=== PATIENT | male | born 1965 | race Caucasian/White ===

== ENCOUNTER 2018-03-23 21:07 | Emergency (ER) | payer BC, OTHER ==
--- NOTE | 2018-03-23 22:25 | EDPHYS ---
Physician Documentation [facility] Name: Karthikeyan Mccormick Age: 52 yrs Sex: Male : 1965 Arrival Date: 03/23/2018 Time: 21:08 Bed 30 Private MD: Dex Bradley B ED Physician Kailash Redmond HPI: 03/23 22:22 This 52 yrs old Male presents to ER via Ambulatory with complaints of Leg gs Pain. 22:22 The patient presents with pain, that is acute. The complaints affect the medial aspect gs of left thigh. Context: The problem was sustained at home, the patient can fully bear weight, the patient is able to ambulate. Onset: The symptoms/episode began/occurred gradually, pain intermittent. Modifying factors: The symptoms are alleviated by nothing. the symptoms are aggravated by nothing. Associated signs and symptoms: Pertinent negatives calf tenderness, numbness, swelling, warmth, weakness. Severity of symptoms: At their worst the symptoms were moderate, in the emergency department the symptoms have resolved. The patient has not experienced similar symptoms in the past. Historical: - Allergies: 21:24 No Known Allergies; tl2 - Home Meds: 21:24 Symbicort inhalation inhalation [Active]; tl2 - PMHx: 21:24 Asthma; tl2 - Immunization history:: Adult Immunizations up to date. - Social history:: Smoking status: Patient/guardian denies using tobacco. - Ebola Screening: : No symptoms or risks identified at this time. ROS: 22:22 All other systems are negative. gs Exam: 22:22 Head/Face: Normocephalic, atraumatic. Eyes: Pupils equal round and reactive to light, gs extra-ocular motions intact. Lids and lashes normal. Conjunctiva and sclera are non-icteric and not injected. Cornea within normal limits. Periorbital areas with no swelling, redness, or edema. ENT: Nares patent. No nasal discharge, no septal abnormalities noted. Tympanic membranes are normal and external auditory canals are clear. Oropharynx with no redness, swelling, or masses, exudates, or evidence of obstruction, uvula midline. Mucous membranes moist. Neck: Trachea midline, no thyromegaly or masses palpated, and no cervical lymphadenopathy. Supple, full range of motion without nuchal rigidity, or vertebral point tenderness. No Meningismus. Chest/axilla: Normal chest wall appearance and motion. Nontender with no deformity. No lesions are appreciated. Cardiovascular: Regular rate and rhythm with a normal S1 and S2. No gallops, murmurs, or rubs. Normal PMI, no JVD. No pulse deficits. Respiratory: Lungs have equal breath sounds bilaterally, clear to auscultation and percussion. No rales, rhonchi or wheezes noted. No increased work of breathing, no retractions or nasal flaring. Abdomen/GI: Soft, non-tender, with normal bowel sounds. No distension or tympany. No guarding or rebound. No evidence of tenderness throughout. Back: No spinal tenderness. No costovertebral tenderness. Full range of motion. Skin: Warm, dry with normal turgor. Normal color with no rashes, no lesions, and no evidence of cellulitis. MS/ Extremity: Pulses equal, no cyanosis. Neurovascular intact. Full, normal range of motion. Neuro: Awake and alert, GCS 15, oriented to person, place, time, and situation. Cranial nerves II-XII grossly intact. Motor strength 5/5 in all extremities. Sensory grossly intact. Cerebellar exam normal. Normal gait. 22:22 Constitutional: The patient appears alert, awake. 22:22 Musculoskeletal/extremity: DVT Exam: no pain, no swelling, no tenderness, negative Homans' sign noted on exam, no appreciated bluish discoloration, no erythema, no increased warmth. Vital Signs: 21:24 BP 157 / 105; Pulse 77; Resp 18; Temp 98.2(O); Pulse Ox 95% on R/A; Weight 104.33 kg; tl2 Height 6 ft. 2 in. (187.96 cm); Pain 3/10; 21:56 BP 145 / 94; Pulse 78; Resp 18; Pulse Ox 97% on R/A; Pain 0/10; mg2 22:44 BP 138 / 85; Pulse 85; Resp 18; Pulse Ox 100% on R/A; Pain 0/10; mg2 21:24 Body Mass Index 29.53 (104.33 kg, 187.96 cm) tl2 MDM: 21:39 Patient medically screened. gs 22:22 Differential diagnosis: tendonitis, dvt. Data reviewed: vital signs, nurses notes. gs Response to treatment: the patient's symptoms have resolved after treatment, and as a result, I will discharge patient. 03/23 21:40 Order name: D-Dimer 03/23 21:40 Order name: D-Dimer; Complete Time: 22:22 EDMS Administered Medications: No medications were administered Disposition: 03/23/18 22:25 Discharged to Home. Impression: Pain in left lower leg. - Condition is Stable. - Discharge Instructions: Musculoskeletal Pain. - Medication Reconciliation Form, Thank You Letter, Antibiotic Education, Prescription Opioid Use form. - Follow up: Private Physician; When: 2 - 3 days; Reason: Re-evaluation by your physician. Signatures: Dispatcher [employer] EDMS Emma Lema RN RN tl2 Kailash Redmond MD MD gs Trent Rodas RN RN mg2 Corrections: (The following items were deleted from the chart) 22:45 22:25 03/23/2018 22:25 Discharged to Home. Impression: Pain in left lower leg. mg2 Condition is Stable. Forms are Medication Reconciliation Form, Thank You Letter, Antibiotic Education, Prescription Opioid Use. Follow up: Private Physician; When: 2 - 3 days; Reason: Re-evaluation by your physician. gs
--- NOTE | 2018-03-23 22:25 | ER ---
Nurse's Notes [facility] Name: Karthikeyan Mccormick Age: 52 yrs Sex: Male : 1965 Arrival Date: 03/23/2018 Time: 21:08 Bed 30 Private MD: Dex Bradley B Diagnosis: Pain in left lower leg Presentation: 03/23 21:18 Presenting complaint: Patient states: I've been having a pain in my left upper thigh tl2 for a couple days. Pt is able to bear weight and ambulate and states that it does not aggravate the pain. No swelling or discoloration noted. Transition of care: patient was not received from another setting of care. Onset of symptoms was March 21, 2018. Risk Assessment: Do you want to hurt yourself or someone else? Patient reports no desire to harm self or others. Initial Sepsis Screen: Does the patient meet any 2 criteria? No. Patient's initial sepsis screen is negative. Does the patient have a suspected source of infection? No. Patient's initial sepsis screen is negative. Care prior to arrival: None. 21:18 Method Of Arrival: Ambulatory tl2 21:18 Acuity: MELQUIADES 3 tl2 Triage Assessment: 21:24 General: Appears in no apparent distress. uncomfortable, Behavior is calm, cooperative, tl2 appropriate for age. Pain: Complains of pain in medial aspect of left thigh Pain does not radiate. Pain currently is 3 out of 10 on a pain scale. Quality of pain is described as aching. Musculoskeletal: Circulation, motion, and sensation intact. Range of motion: intact in all extremities. Historical: - Allergies: 21:24 No Known Allergies; tl2 - Home Meds: 21:24 Symbicort inhalation inhalation [Active]; tl2 - PMHx: 21:24 Asthma; tl2 - Immunization history:: Adult Immunizations up to date. - Social history:: Smoking status: Patient/guardian denies using tobacco. - Ebola Screening: : No symptoms or risks identified at this time. Screenin:26 Abuse screen: Denies threats or abuse. Nutritional screening: No deficits noted. tl2 Tuberculosis screening: No symptoms or risk factors identified. Fall Risk None identified. Assessment: 21:33 General: Appears in no apparent distress. comfortable, Behavior is calm, cooperative. mg2 Pain: Complains of pain in left leg and medial aspect of left thigh Pain does not radiate. Pain currently is 0 out of 10 on a pain scale. Quality of pain is described as aching, Pain began gradually, 2-3 days ago. Is intermittent, Alleviated by cold application. Neuro: Level of Consciousness is awake, alert, obeys commands, Oriented to person, place, time. Cardiovascular: Capillary refill < 3 seconds Patient's skin is warm and dry. Respiratory: Airway is patent Respiratory effort is even, unlabored, Respiratory pattern is regular, symmetrical. GI: No signs and/or symptoms were reported involving the gastrointestinal system. : No signs and/or symptoms were reported regarding the genitourinary system. EENT: No signs and/or symptoms were reported regarding the EENT system. Derm: Skin is intact, Skin is pink, warm \T\ dry. normal. Musculoskeletal: Circulation, motion, and sensation intact. Reports pain in left leg and medial aspect of left thigh since 3 days. Pain is 0 out of 10 on a pain scale. 22:44 Reassessment: Patient appears in no apparent distress at this time. Patient and/or mg2 family updated on plan of care and expected duration. Pain level reassessed. Patient is alert, oriented x 3, equal unlabored respirations, skin warm/dry/pink. Vital Signs: 21:24 BP 157 / 105; Pulse 77; Resp 18; Temp 98.2(O); Pulse Ox 95% on R/A; Weight 104.33 kg; tl2 Height 6 ft. 2 in. (187.96 cm); Pain 3/10; 21:56 BP 145 / 94; Pulse 78; Resp 18; Pulse Ox 97% on R/A; Pain 0/10; mg2 22:44 BP 138 / 85; Pulse 85; Resp 18; Pulse Ox 100% on R/A; Pain 0/10; mg2 21:24 Body Mass Index 29.53 (104.33 kg, 187.96 cm) tl2 ED Course: 21:08 Patient arrived in ED. ds1 21:08 Dex Bradley MD is Private Physician. ds1 21:10 Kailash Redmond MD is Attending Physician. gs 21:19 Trent Rodas, TRACY is Primary Nurse. mg2 21:19 Triage completed. tl2 21:24 Arm band placed on right wrist. tl2 21:26 Patient has correct armband on for positive identification. Bed in low position. Call tl2 light in reach. Side rails up X 1. Adult w/ patient. 21:49 No provider procedures requiring assistance completed. Inserted saline lock: 20 gauge mg2 in right antecubital area, using aseptic technique. Blood collected. 22:44 IV discontinued, intact, bleeding controlled, No redness/swelling at site. Pressure mg2 dressing applied. Administered Medications: No medications were administered Outcome: 22:25 Discharge ordered by . 22:44 Discharged to home ambulatory, with family. mg2 22:44 Condition: good 22:44 Discharge instructions given to patient, family, Instructed on discharge instructions, follow up and referral plans. Demonstrated understanding of instructions, follow-up care. 22:45 Patient left the ED. mg2 Signatures: Gogo Green ds1 Emma Lema RN RN tl2 Kailash Redmond MD MD Trent Rodas RN RN mg2
[2018-03-23 23:51] VITALS: BP 138/85; TEMP 98.2; O2SAT 100
[2018-03-24] MEDS ORDERED: IBUPROFEN 100 MG/5 ML UCUP ONE (00:52)
== END 2018-03-23 22:45 | disposition home or self-care (01) ==
LOC: ER 21:07
DX: M79.662 Pain in left lower leg (principal); J45.909 Unspecified asthma, uncomplicated
CPT/HCPCS: 36415; 85379; 99283

== ENCOUNTER 2018-09-15 15:52 | Emergency (ER) | payer BC ==
[2018-09-15] MEDS ORDERED: LIDOCAINE 1% MPF 5 ML VIAL ONE ×2 (16:46→17:15)
[2018-09-15] MEDS ORDERED: SMZ./TMP. 800/160 MG TABLET ONE (17:00)
[2018-09-15] MEDS ORDERED: DOXYCYCLINE 100 MG CAP PO ONE (17:00)
--- NOTE | 2018-09-15 17:25 | ER ---
Nurse's Notes [facility] Name: Karthikeyan Mccormick Age: 53 yrs Sex: Male : 1965 Arrival Date: 09/15/2018 Time: 15:57 Bed 6 Private MD: Dex Bradley B Diagnosis: Cutaneous abscess of right axilla Presentation: 09/15 16:01 Presenting complaint: Patient states: right under arm abscess started on Tuesday, was sv seen at [place] on Tuesday, sent home with abx. They told him to call a surgeon and he spoke with Dr Munguia and he is to meet him here this evening. Transition of care: patient was not received from another setting of care. Onset of symptoms was September 11, 2018. Care prior to arrival: None. 16:01 Method Of Arrival: Ambulatory sv 16:01 Acuity: MELQUIADES 3 sv 17:56 Risk Assessment: Do you want to hurt yourself or someone else? Patient reports no aj desire to harm self or others. Initial Sepsis Screen: Does the patient meet any 2 criteria? No. Patient's initial sepsis screen is negative. Does the patient have a suspected source of infection? No. Patient's initial sepsis screen is negative. Triage Assessment: 16:04 General: Appears in no apparent distress. uncomfortable, Behavior is calm, cooperative, sv appropriate for age. Pain: Complains of pain in right axilla Pain currently is 4 out of 10 on a pain scale. Neuro: Level of Consciousness is awake, alert, obeys commands, Oriented to person, place, time, situation, Gait is steady. Respiratory: Respiratory effort is even, unlabored, Respiratory pattern is regular, symmetrical. Derm: Abscess located on right axilla is dime sized, is red, is raised. Historical: - Allergies: 16:02 No Known Allergies; sv - PMHx: 16:02 Asthma; sv - PSHx: 16:02 right shoulder; right knee; left ankle; left thumb; sv - Immunization history:: Adult Immunizations up to date. - Family history:: not pertinent. - Social history:: Smoking status: Patient/guardian denies using tobacco. - Ebola Screening: : Patient negative for fever greater than or equal to 101.5 degrees Fahrenheit, and additional compatible Ebola Virus Disease symptoms Patient denies exposure to infectious person Patient denies travel to an Ebola-affected area in the 21 days before illness onset No symptoms or risks identified at this time. Screenin:46 Abuse screen: Denies threats or abuse. Denies injuries from another. Nutritional aj screening: No deficits noted. Tuberculosis screening: No symptoms or risk factors identified. Fall Risk None identified. Assessment: 17:46 General: Appears in no apparent distress. comfortable, Behavior is calm, cooperative, aj appropriate for age. Pain: Complains of pain in right axilla. Neuro: Level of Consciousness is awake, alert, obeys commands, Oriented to person, place, time, situation. Respiratory: Airway is patent Respiratory effort is even, unlabored, Respiratory pattern is regular, symmetrical. Derm: Skin is intact, is healthy with good turgor, Skin is pink, warm \T\ dry. normal, Abscess located on right axilla is half dollar sized, has purulent drainage, is hot to touch, is red, is raised. Vital Signs: 16:02 BP 120 / 89; Pulse 88; Resp 20; Temp 98.5; Pulse Ox 97% ; Weight 111.13 kg; Height 6 sv ft. 2 in. (187.96 cm); Pain 4/10; 16:02 Body Mass Index 31.46 (111.13 kg, 187.96 cm) sv ED Course: 15:57 Patient arrived in ED. mr 15:58 Dex Bradley MD is Private Physician. mr 16:02 Triage completed. sv 16:04 Arm band placed on. sv 16:20 Troy Barragan MD is Attending Physician. amy 16:30 Lita Leon RN is Primary Nurse. aj 17:24 Simeon Munguia MD is Referral Physician. amy 17:46 Patient has correct armband on for positive identification. Pulse ox on. NIBP on. aj 17:46 Assist provider with I \T\ D: of an abscess on Set up I\T\D tray. Performed by Troy Barragan MD Wound packed. Dressing with Neosporin and 4X4s, Patient tolerated well. Patient did not have IV access during this emergency room visit. Administered Medications: 17:45 Drug: Doxycycline 200 mg Route: PO; aj 17:56 Follow up: Response: No adverse reaction aj 17:45 Drug: Bactrim (160 mg-800 mg (DS) 1 tablet Route: PO; aj 17:57 Follow up: Response: No adverse reaction joanie 17:45 Drug: Lidocaine (1 %) 10 ml Volume: 20 ml; Route: Infiltration; joanie 17:45 Drug: Neosporin Ointment 1 application Route: Topical; Site: affected area; aj Outcome: 17:24 Discharge ordered by . amy 17:46 Discharged to home ambulatory, with family. joanie 17:46 Condition: good 17:46 Discharge instructions given to patient, family, Instructed on discharge instructions, follow up and referral plans. medication usage, wound care, Demonstrated understanding of instructions, follow-up care, medications, wound care, Prescriptions given X 3. 17:57 Patient left the ED. joanie Signatures: Dona Deras RN RN sv Myers, Amanda, RN RN aj Anderson, Corey, MD MD cha Rivera, Mary Corrections: (The following items were deleted from the chart) 16:04 16:02 Pulse 88bpm; Resp 20bpm; Pulse Ox 97%; Temp 98.5F; 111.13 kg; Height 6 ft. 2 in.; sv BMI: 31.4; Pain 4/10; sv
--- NOTE | 2018-09-15 17:25 | EDPHYS ---
Physician Documentation [facility] Name: Karthikeyan Mccormick Age: 53 yrs Sex: Male : 1965 Arrival Date: 09/15/2018 Time: 15:57 Bed 6 Private MD: Dex Bradley B ED Physician Troy Barragan HPI: 09/15 16:36 This 53 yrs old Male presents to ER via Ambulatory with complaints of Abscess.amy 16:36 The patient presents with an abscess of the right axilla. Description: The affected amy area is moderate sized, localized, draining, erythematous. Associated signs and symptoms: Pertinent positives: drainage, erythema, swelling. Severity of symptoms: At their worst the symptoms were moderate, in the emergency department the symptoms are unchanged. Historical: - Allergies: 16:02 No Known Allergies; sv - PMHx: 16:02 Asthma; sv - PSHx: 16:02 right shoulder; right knee; left ankle; left thumb; sv - Immunization history:: Adult Immunizations up to date. - Family history:: not pertinent. - Social history:: Smoking status: Patient/guardian denies using tobacco. - Ebola Screening: : Patient negative for fever greater than or equal to 101.5 degrees Fahrenheit, and additional compatible Ebola Virus Disease symptoms Patient denies exposure to infectious person Patient denies travel to an Ebola-affected area in the 21 days before illness onset No symptoms or risks identified at this time. ROS: 16:36 Constitutional: Negative for fever, chills, and weight loss, Eyes: Negative for injury, amy pain, redness, and discharge, ENT: Negative for injury, pain, and discharge, Neck: Negative for injury, pain, and swelling, Cardiovascular: Negative for chest pain, palpitations, and edema, Respiratory: Negative for shortness of breath, cough, wheezing, and pleuritic chest pain, Abdomen/GI: Negative for abdominal pain, nausea, vomiting, diarrhea, and constipation, Back: Negative for injury and pain, : Negative for injury, bleeding, discharge, and swelling, Skin: Negative for injury, rash, and discoloration, Neuro: Negative for headache, weakness, numbness, tingling, and seizure, Psych: Negative for depression, anxiety, suicide ideation, homicidal ideation, and hallucinations, Allergy/Immunology: Negative for hives, rash, and allergies, Endocrine: Negative for neck swelling, polydipsia, polyuria, polyphagia, and marked weight changes, Hematologic/Lymphatic: Negative for swollen nodes, abnormal bleeding, and unusual bruising. 16:36 MS/extremity: Positive for pain, swelling, tenderness, of the right axilla. Exam: 16:36 Constitutional: This is a well developed, well nourished patient who is awake, alert, amy and in no acute distress. Head/Face: Normocephalic, atraumatic. Eyes: Pupils equal round and reactive to light, extra-ocular motions intact. Lids and lashes normal. Conjunctiva and sclera are non-icteric and not injected. Cornea within normal limits. Periorbital areas with no swelling, redness, or edema. ENT: Nares patent. No nasal discharge, no septal abnormalities noted. Tympanic membranes are normal and external auditory canals are clear. Oropharynx with no redness, swelling, or masses, exudates, or evidence of obstruction, uvula midline. Mucous membranes moist. Neck: Trachea midline, no thyromegaly or masses palpated, and no cervical lymphadenopathy. Supple, full range of motion without nuchal rigidity, or vertebral point tenderness. No Meningismus. Chest/axilla: Normal chest wall appearance and motion. Nontender with no deformity. No lesions are appreciated. Cardiovascular: Regular rate and rhythm with a normal S1 and S2. No gallops, murmurs, or rubs. Normal PMI, no JVD. No pulse deficits. Respiratory: Lungs have equal breath sounds bilaterally, clear to auscultation and percussion. No rales, rhonchi or wheezes noted. No increased work of breathing, no retractions or nasal flaring. Abdomen/GI: Soft, non-tender, with normal bowel sounds. No distension or tympany. No guarding or rebound. No evidence of tenderness throughout. Back: No spinal tenderness. No costovertebral tenderness. Full range of motion. Male : Normal genitalia with no discharge or lesions. Skin: Warm, dry with normal turgor. Normal color with no rashes, no lesions, and no evidence of cellulitis. Neuro: Awake and alert, GCS 15, oriented to person, place, time, and situation. Cranial nerves II-XII grossly intact. Motor strength 5/5 in all extremities. Sensory grossly intact. Cerebellar exam normal. Normal gait. Psych: Awake, alert, with orientation to person, place and time. Behavior, mood, and affect are within normal limits. 16:36 Musculoskeletal/extremity: ROM: no acute changes, Circulation is intact in all extremities. Sensation intact. Compartment Syndrome exam of affected extremity: is normal. DVT Exam: negative Homans' sign noted on exam, no appreciated bluish discoloration, pain, swelling, tenderness, erythema, increased warmth, that is moderate. Vital Signs: 16:02 BP 120 / 89; Pulse 88; Resp 20; Temp 98.5; Pulse Ox 97% ; Weight 111.13 kg; Height 6 sv ft. 2 in. (187.96 cm); Pain 4/10; 16:02 Body Mass Index 31.46 (111.13 kg, 187.96 cm) sv MDM: 16:20 Patient medically screened. [facility] 16:36 Data reviewed: vital signs, nurses notes. [facility] 09/15 16:36 Order name: Suture Tray at Bedside; Complete Time: 17:07 [facility] 09/15 17:22 Order name: Wound dressing; Complete Time: 17:45 [facility] Administered Medications: 17:45 Drug: Doxycycline 200 mg Route: PO; aj 17:56 Follow up: Response: No adverse reaction aj 17:45 Drug: Bactrim (160 mg-800 mg (DS) 1 tablet Route: PO; aj 17:57 Follow up: Response: No adverse reaction 17:45 Drug: Lidocaine (1 %) 10 ml Volume: 20 ml; Route: Infiltration; aj 17:45 Drug: Neosporin Ointment 1 application Route: Topical; Site: affected area; Disposition: 09/15/18 17:24 Discharged to Home. Impression: Cutaneous abscess of right axilla. - Condition is Fair. - Discharge Instructions: Skin Abscess, Incision and Drainage, Skin Abscess, [id number], Incision and Drainage, Care After. - Prescriptions for Tylenol- Codeine #3 300-30 mg Oral Tablet - take 2 tablet by ORAL route every 6 hours As needed; 30 tablet. Doxycycline Hyclate 100 mg Oral Tablet - take 1 tablet by ORAL route every 12 hours; 20 tablet. Bactrim DS 800- 160 mg Oral Tablet - take 1 tablet by ORAL route every 12 hours for 10 days; 20 tablet. - Medication Reconciliation Form, Thank You Letter, Antibiotic Education, Prescription Opioid Use form. - Follow up: Simeon Munguia; When: 2 - 3 days; Reason: Recheck today's complaints, Continuance of care, Re-evaluation by your physician. - Problem is new. - Symptoms have improved. Signatures: Dispatcher [employer] Dona Bryan, RN Lita Bhatia RN Troy Norman MD MD cha Leal, Jahala, RN RN [email or web address] Corrections: (The following items were deleted from the chart) 17:57 17:24 09/15/2018 17:24 Discharged to Home. Impression: Cutaneous abscess of right aj axilla. Condition is Fair. Discharge Instructions: Skin Abscess, Incision and Drainage, Skin Abscess, [id number], Incision and Drainage, Care After. Prescriptions for Tylenol-Codeine #3 300-30 mg Oral Tablet - take 2 tablet by ORAL route every 6 hours As needed; 30 tablet, Doxycycline Hyclate 100 mg Oral Tablet - take 1 tablet by ORAL route every 12 hours; 20 tablet, Bactrim DS 800-160 mg Oral Tablet - take 1 tablet by ORAL route every 12 hours for 10 days; 20 tablet. and Forms are Medication Reconciliation Form, Thank You Letter, Antibiotic Education, Prescription Opioid Use. Follow up: Simeon Munguia; When: 2 - 3 days; Reason: Recheck today's complaints, Continuance of care, Re-evaluation by your physician. Problem is new. Symptoms have improved. amy
[2018-09-15 20:15] VITALS: BP 101/68; TEMP 98.3; O2SAT 100
== END 2018-09-15 17:57 | disposition home or self-care (01) ==
LOC: ER 15:52
DX: L02.411 Cutaneous abscess of right axilla (principal)
CPT/HCPCS: 99284

== ENCOUNTER 2018-11-03 16:28 | Observation (INO) | payer BC ==
--- OUTSIDE RECORDS SUMMARY | 2018-11-03 16:30 | XMS REPORT ---
:1965 [facility] Address [address] [place] [address] Dr. Cortes [address] [place] [id number] Care Team Providers Name Role Phone Unavailable Unavailable Unavailable Problems This patient has no known problems. Allergies, Adverse Reactions, Alerts This patient has no known allergies or adverse reactions. Medications This patient has no known medications.
[2018-11-03] MEDS ORDERED: METHYLPREDNISOLONE 125 MG INJ ONE (16:43)
[2018-11-03] MEDS ORDERED: DIPHENHYDRAMINE 50 MG/ML VIAL ONE (16:43)
[2018-11-03] MEDS ORDERED: FAMOTIDINE 20 MG/2 ML VIAL IV ONE (16:44)
[2018-11-03] MEDS ORDERED: EPINEPHRINE/PF 1 MG/ML AMP ONE (16:50)
[2018-11-03] MEDS ORDERED: NA CHLORIDE 0.9% 1,000 ML ONE (16:51)
[2018-11-03 17:18] LABS: Absolute Lymphocytes (CBC) 3.6 K/uL (0.7-4.9); Absolute Monocytes 0.7 K/uL (0.1-1.3); Absolute Neutrophil 12.6 K/uL (1.8-8.0); Basophils % 0.2 % (0-1.3); Eosinophils % 0.9 % (0-4.4); Hematocrit 47.1 % (39.6-49.0); Lymphocytes % 21.1 % (15.3-44.8); MPV 9.4 fL (7.6-11.3); Monocytes % 4.2 % (3.3-12.3); RBC Red Blood Cell Count 5.37 M/uL (4.33-5.43)
[2018-11-03 17:32] LABS: Potassium 3.5 mmol/L (3.5-5.1)
--- NOTE | 2018-11-03 18:39 | RAD REPORT ---
EXAM DESCRIPTION: RAD - Chest Single View - 11/03/2018 5:10 pm CLINICAL HISTORY: Dyspnea COMPARISON: April 2017 TECHNIQUE: AP portable chest image was obtained 1707 hours . FINDINGS: No focal lung parenchymal process. Interstitial pattern is mildly prominent but not clearl y different. Heart and vasculature are normal. No measurable pleural effusion and no pneumothorax. No acute bony abnormality seen. No acute aortic findings suspected. IMPRESSION: No acute cardiopulmonary process. No significant change from comparison.
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
[2018-11-03] MEDS: METHYLPREDNISOLONE 125 MG INJ IV SCH (23:35)
[2018-11-03] MEDS: DIPHENHYDRAMINE 25 MG TAB/CAP PO SCH (23:35)
[2018-11-04 01:34] VITALS: BMI 29.0
[2018-11-04] MEDS: DIPHENHYDRAMINE 25 MG TAB/CAP PO SCH ×2 (04:00→09:54)
[2018-11-04] MEDS: METHYLPREDNISOLONE 125 MG INJ IV SCH (05:48)
[2018-11-04 09:16] VITALS: BP 136/87; TEMP 97.5
[2018-11-04] MEDS ORDERED: HOME MED 1 EA UNK (Budesonide/Formoterol Fumarate [Symbicort 160-4.5 Mcg Inhaler] 2 PUFF) IH PRN (09:24)
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
[2018-11-04 11:07] VITALS: O2SAT 96
--- NOTE | 2018-11-07 11:27 | EKG ---
Test Date: 2018-11-03 Test Time: 17:01:00 Clinic Administrator: FRANCIS MEASUREMENT RESULTS: Intervals: Rate: 114 ME: 148 QRSD: 94 QT: 348 QTc: 479 [place]: P: 67 ME: 148 QRS: 78 T: 42 INTERPRETIVE STATEMENTS: Sinus tachycardia Nonspecific ST and T wave abnormality Abnormal ECG Compared to ECG 12/10/2010 20:50:20 ST (T wave) deviation now present Electronically Signed On 11-03-18 18:21:05 CDT by Torito Youngblood
== END 2018-11-04 10:37 | disposition home or self-care (01) ==
LOC: ER 16:28 → ERHOLD 21:08 → 2ND 22:15
PROVIDERS: ADMIT Internal Medicine; ATTEND Internal Medicine
DX: T88.6XXA Anaphylactic reaction due to adverse effect of correct drug or medicament properly administered, initial encounter (principal); T50.8X5A Adverse effect of diagnostic agents, initial encounter; R00.0 Tachycardia, unspecified; J45.909 Unspecified asthma, uncomplicated; V89.2XXS Person injured in unspecified motor-vehicle accident, traffic, sequela
CPT/HCPCS: 36415; 71045; 80048; 85025; 93005; 94760; 96361; 96372; 96374; 96375; 99291; 99292; G0378; J0171; J2930; J7030

== ENCOUNTER 2020-05-12 18:39 | Emergency (ER) | payer BC ==
--- NOTE | 2020-05-12 19:10 | ER ---
Nurse's Notes [facility] Name: Karthikeyan Mccormick Age: 54 yrs Sex: Male : 1965 Arrival Date: 05/12/2020 Time: 18:40 Bed 3 Private MD: Diagnosis: ST elevation (STEMI) myocardial infarction involving right coronary artery Presentation: 05/12 18:40 Chief complaint: Patient states: Chest pain on and off x 1 week ago but today the pain aa5 is not going away. Pt reports constant pain x 2 hrs. EMS reports giving Nitro x 1, Zofran 4mg, and ASA 324mg. IV started to left AC by EMS. 18:40 Risk Assessment: Do you want to hurt yourself or someone else? Patient reports no aa5 desire to harm self or others. Onset of symptoms was May 12, 2020. 18:40 Acuity: MELQUIADES 1 aa5 18:40 Method Of Arrival: EMS: [facility] aa5 19:01 Coronavirus screen: At this time, the client does not indicate any symptoms associated tw2 with coronavirus-19. Ebola Screen: Patient denies travel to an Ebola-affected area in the 21 days before illness onset. Initial Sepsis Screen: Does the patient meet any 2 criteria? No. Patient's initial sepsis screen is negative. Does the patient have a suspected source of infection? No. Patient's initial sepsis screen is negative. Triage Assessment: 18:59 General: Appears in no apparent distress. uncomfortable, Behavior is calm, cooperative, jl7 appropriate for age. Pain: Complains of pain in chest. Neuro: Level of Consciousness is awake, alert, obeys commands, Oriented to person, place, time, situation. Cardiovascular: Heart tones present Patient's skin is warm and dry. Respiratory: Airway is patent Respiratory effort is even, unlabored, Respiratory pattern is regular, symmetrical. Derm: Skin is pink, warm \T\ dry. Historical: - Allergies: 18:59 No Known Allergies; jl7 - Home Meds: 18:59 naltrexone 50 mg oral tab [Active]; jl7 - PMHx: 18:59 Asthma; alcholism; jl7 - PSHx: 18:59 right shoulder; right knee; left ankle; left thumb; jl7 - Immunization history:: Adult Immunizations unknown. - Social history:: Smoking status: Patient denies any tobacco usage or history of. Screenin:01 Abuse screen: Denies threats or abuse. Nutritional screening: No deficits noted. tw2 Tuberculosis screening: No symptoms or risk factors identified. Fall Risk None identified. Assessment: 18:50 Reassessment: Pt states he cannot take Narcotics due to taking Naltrexone, Wasted aa5 100mcg of Fentanyl by me and Katelynn Harper RN. . 19:15 Reassessment: Jessica () [phone]. ea 19:30 Reassessment: Report called to Tiff MOLINA at [facility] center medical and lab director. ea 19:42 Reassessment: Patient and/or family updated on plan of care and expected duration. Pain ll2 level reassessed. Patient is alert, oriented x 3, equal unlabored respirations, skin warm/dry/pink. 19:45 Pain: Pain began 2-3 days ago. ll2 20:21 Pain: ll2 20:25 Reassessment: Patient and/or family updated on plan of care and expected duration. Pain ll2 level reassessed. Patient is alert, oriented x 3, equal unlabored respirations, skin warm/dry/pink. pt left via stretcher with life flight from [facility], Pt tolerated well. Wifes number given to flight nurse. Vital Signs: 18:43 Weight 99.79 kg (R); tw2 19:02 BP 120 / 104; Pulse 71; Resp 19; Pulse Ox 100% ; Weight 99.79 kg; jl7 19:46 BP 94 / 60; Pulse 53; Resp 18; Pulse Ox 100% on R/A; ea ED Course: 18:36 Inserted saline lock: 20 gauge in left forearm, using aseptic technique. ,using aseptic tw2 technique. [place] Blood collected. Missed attempt(s): 20 gauge in left antecubital area. Bleeding controlled, band aid applied, catheter tip intact. Missed attempt(s): 20 gauge in left antecubital area. by TR[place]Y [place]. Bleeding controlled, band aid applied, catheter tip intact. 18:40 Patient arrived in ED. as 18:40 Arm band placed on. aa5 18:40 Placed in gown. Bed in low position. case monitor on. Pulse ox on. NIBP on. tw2 18:41 Bill Rendon PA is PHCP. jr8 18:41 Troy Barragan MD is Attending Physician. jr8 18:44 Triage completed. aa5 18:47 EKG done, by ED staff, reviewed by Troy Barragan MD. em1 19:01 Maintain EMS IV. Dressing intact. Good blood return noted. Site clean \T\ dry. Gauge \T\ tw 2 site: 20 g RIGHT ac. Patient maintains SpO2 saturation greater than 95% on room air. 19:13 Sabi Gonzalez, TRACY is Primary Nurse. ll2 19:26 XRAY Chest (1 view) In Process Unspecified. EDMS 19:47 No provider procedures requiring assistance completed. Patient transferred, IV remains ea in place. Administered Medications: 18:38 Drug: Zofran (Ondansetron) 4 mg Route: IVP; Site: right antecubital; tw2 19:03 Follow up: Response: No adverse reaction jl7 18:44 Not Given (Patient ): Tenecteplase 45 mg IV at calculated rate once jr8 18:46 Drug: Heparin (NE-Bolus with thrombolytic) - HEParin 60 units/kg {Co-Signature: eric tw2 (Shanique Mason RN).} Route: IVP; Site: right antecubital; 19:04 Follow up: Response: No adverse reaction jl7 18:50 Drug: Heparin (NE Drip) 12 units/kg/hr - (HEParin 98831 units, D5W 500 ml) tw2 {Co-Signature: jlSelma (Shanique Mason RN).} Route: IV; Rate: calculated rate; Site: left forearm; 18:51 Drug: Tenecteplase 50 mg {Co-Signature: eric (Shanique Mason RN).} Route: IV; Rate: tw2 calculated rate; Site: right antecubital; 19:45 Follow up: Response: No adverse reaction; IV Status: Completed infusion ea 18:52 Not Given (Patient Refused; pt takes naltrexone): fentaNYL (PF) 25 mcg IVP once; RASS tw2 on ADMIN: Combtv4, Very Agttd3, Agttd2, Rstlss1, AlertClm0, Drwsy-1, Lt Sdtn-2, Mod Sdtn-3, Dp Sdtn-4, UnArsble-5 18:52 Drug: PlaVIX 300 mg Route: PO; tw2 19:04 Follow up: Response: No adverse reaction jl7 19:05 Drug: NS 0.9% 1000 ml Route: IV; Rate: 1 bolus; Site: left forearm; tw2 19:22 Drug: fentaNYL (PF) 25 mcg Route: IVP; Site: right antecubital; ll2 19:41 Follow up: Response: No adverse reaction; RASS: Alert and Calm (0) ll2 19:40 Drug: NS 0.9% 1000 ml Route: IV; Rate: 1 bolus; Site: left antecubital; ll2 19:41 Drug: fentaNYL (PF) 25 mcg Route: IVP; Site: right antecubital; ll2 19:41 Follow up: Response: No adverse reaction; RASS: Alert and Calm (0) 2 Outcome: 19:09 ER care complete, transfer ordered by . jr8 20:05 Patient left the ED. ll2 20:24 Transferred by helicopter to [facility]. [facility] 20:24 Condition: stable 20:24 Instructed on the need for transfer. Signatures: Dispatcher [employer] EDMS Maddy Spivey Eric em1 Nohemi Head, RN RN aa5 Bill Rendon PA PA jr8 Katelynn Harper RN RN tw2 Shanique Mason RN RN jl7 Keisha Gillette, RN RN Sabi Tyler RN RN ll2 Shanique Mason RN jl7 Corrections: (The following items were deleted from the chart) 19:06 18:40 Chief complaint: Patient states: Chest pain on and off x 1 week ago but today the aa5 pain is not going away. Pt reports constant pain x 2 hrs. aa5
--- NOTE | 2020-05-12 19:10 | EDPHYS ---
Physician Documentation [facility] Name: Karthikeyan Mccormick Age: 54 yrs Sex: Male : 1965 Arrival Date: 05/12/2020 Time: 18:40 Bed 3 Private MD: ED Physician Troy Barragan HPI: 05/12 18:48 This 54 yrs old Male presents to ER via EMS with complaints of STEMI, Chest jr8 Pain. 18:48 The patient or guardian reports chest pain that is located primarily in the substernal jr8 area. Onset: acutely, today, 2 hour(s) ago. The pain radiates to jaw. Associated signs and symptoms: Pertinent positives: nausea. The chest pain is described as a pressure. Duration: The patient or guardian reports a single episode, that is still ongoing. Modifying factors: The symptoms are alleviated by nothing. the symptoms are aggravated by nothing. Severity of pain: At its worst the pain was moderate in the emergency department the pain is unchanged. EMS care prior to arrival includes: aspirin, nitroglycerin, x 1, with no relief of the chest pain. The patient has not experienced similar symptoms in the past. The patient has not recently seen a physician. Historical: - Allergies: 18:59 No Known Allergies; jl7 - Home Meds: 18:59 naltrexone 50 mg oral tab [Active]; jl7 - PMHx: 18:59 Asthma; alcholism; jl7 - PSHx: 18:59 right shoulder; right knee; left ankle; left thumb; jl7 - Immunization history:: Adult Immunizations unknown. - Social history:: Smoking status: Patient denies any tobacco usage or history of. ROS: 18:48 Eyes: Negative for injury, pain, redness, and discharge, ENT: Negative for injury, jr8 pain, and discharge, Neck: Negative for injury, pain, and swelling, Respiratory: Negative for shortness of breath, cough, wheezing, and pleuritic chest pain, Back: Negative for injury and pain, MS/Extremity: Negative for injury and deformity, Skin: Negative for injury, rash, and discoloration, Neuro: Negative for headache, weakness, numbness, tingling, and seizure. 18:48 Cardiovascular: Positive for chest pain, Negative for edema, orthopnea, palpitations, paroxysmal nocturnal dyspnea. 18:48 Abdomen/GI: Positive for nausea, Negative for abdominal pain, vomiting, diarrhea, constipation, abdominal cramps, abdominal distension. Exam: 18:48 Eyes: Pupils equal round and reactive to light, extra-ocular motions intact. Lids and jr8 lashes normal. Conjunctiva and sclera are non-icteric and not injected. Cornea within normal limits. Periorbital areas with no swelling, redness, or edema. ENT: Nares patent. No nasal discharge, no septal abnormalities noted. Tympanic membranes are normal and external auditory canals are clear. Oropharynx with no redness, swelling, or masses, exudates, or evidence of obstruction, uvula midline. Mucous membranes moist. Neck: Trachea midline, no thyromegaly or masses palpated, and no cervical lymphadenopathy. Supple, full range of motion without nuchal rigidity, or vertebral point tenderness. No Meningismus. Cardiovascular: Regular rate and rhythm with a normal S1 and S2. No gallops, murmurs, or rubs. Normal PMI, no JVD. No pulse deficits. Respiratory: Lungs have equal breath sounds bilaterally, clear to auscultation and percussion. No rales, rhonchi or wheezes noted. No increased work of breathing, no retractions or nasal flaring. Abdomen/GI: Soft, non-tender, with normal bowel sounds. No distension or tympany. No guarding or rebound. No evidence of tenderness throughout. Back: No spinal tenderness. No costovertebral tenderness. Full range of motion. Skin: Warm, dry with normal turgor. Normal color with no rashes, no lesions, and no evidence of cellulitis. MS/ Extremity: Pulses equal, no cyanosis. Neurovascular intact. Full, normal range of motion. Neuro: Awake and alert, GCS 15, oriented to person, place, time, and situation. Cranial nerves II-XII grossly intact. Motor strength 5/5 in all extremities. Sensory grossly intact. Cerebellar exam normal. Normal gait. 19:10 ECG was reviewed by the Attending Physician. jr8 Vital Signs: 18:43 Weight 99.79 kg (R); tw2 19:02 BP 120 / 104; Pulse 71; Resp 19; Pulse Ox 100% ; Weight 99.79 kg; jl7 19:46 BP 94 / 60; Pulse 53; Resp 18; Pulse Ox 100% on R/A; ea MDM: 18:41 Patient medically screened. amy 18:48 The patient was not given aspirin in the Emergency Department. Administered by EMS. jr8 Data reviewed: vital signs, nurses notes, lab test result(s), EKG, radiologic studies, plain films. Data interpreted: Pulse oximetry: on room air is 100 %. Interpretation: normal. Counseling: I had a detailed discussion with the patient and/or guardian regarding: the historical points, exam findings, and any diagnostic results supporting the discharge/admit diagnosis, lab results, radiology results, the need to transfer to another facility, [facility] does not immediately have the required specialist. ED course: Dr. Wilcox consulted by laborer construction or leak gang crew unavailable . 05/12 18:42 Order name: Basic Metabolic Panel; Complete Time: 19:34 8 05/12 18:42 Order name: CBC with Diff; Complete Time: 19:24 8 05/12 18:42 Order name: LFT's; Complete Time: 19:34 8 05/12 18:42 Order name: Magnesium; Complete Time: 19:34 8 05/12 18:42 Order name: NT PRO-BNP; Complete Time: 19:34 jr8 05/12 18:42 Order name: PT-INR; Complete Time: 19:24 8 05/12 18:42 Order name: Troponin (emerg Dept Use Only); Complete Time: 19:34 jr8 05/12 18:42 Order name: XRAY Chest (1 view); Complete Time: 19:46 8 05/12 18:42 Order name: EKG; Complete Time: 18:43 8 05/12 18:42 Order name: Cardiac monitoring; Complete Time: 18:56 jr8 05/12 18:42 Order name: EKG - Nurse/Tech; Complete Time: 18:47 8 05/12 18:42 Order name: IV Saline Lock; Complete Time: 18:56 jr8 05/12 18:42 Order name: Labs collected and sent; Complete Time: 18:57 jr8 05/12 18:42 Order name: O2 Per Protocol; Complete Time: 18:56 jr8 05/12 18:42 Order name: O2 Sat Monitoring; Complete Time: 18:56 jr8 EC:10 Rate is 65 beats/min. Rhythm is regular, Normal Sinus Rhythm. QRS [place] is Normal. [place] jr8 interval is normal at 146 msec. QRS interval is normal at 108 msec. QT interval is normal at 440 msec. No Q waves. T waves are Inverted in lead aVL. ST Segment is elevated in leads III, aVF, 1-2mm. ST Segment is depressed in lead aVL. Clinical impression: Inferior IN - acute. Interpreted by me. Administered Medications: 18:38 Drug: Zofran (Ondansetron) 4 mg Route: IVP; Site: right antecubital; tw2 19:03 Follow up: Response: No adverse reaction jl7 18:44 Not Given (Patient ): Tenecteplase 45 mg IV at calculated rate once jr8 18:46 Drug: Heparin (IN-Bolus with thrombolytic) - HEParin 60 units/kg {Co-Signature: eric tw2 (Shanique Mason RN).} Route: IVP; Site: right antecubital; 19:04 Follow up: Response: No adverse reaction jl7 18:50 Drug: Heparin (IN Drip) 12 units/kg/hr - (HEParin 21117 units, D5W 500 ml) tw2 {Co-Signature: jl7 (Shanique Mason RN).} Route: IV; Rate: calculated rate; Site: left forearm; 18:51 Drug: Tenecteplase 50 mg {Co-Signature: eric (Shanique Mason RN).} Route: IV; Rate: tw2 calculated rate; Site: right antecubital; 19:45 Follow up: Response: No adverse reaction; IV Status: Completed infusion ea 18:52 Not Given (Patient Refused; pt takes naltrexone): fentaNYL (PF) 25 mcg IVP once; RASS tw2 on ADMIN: Combtv4, Very Agttd3, Agttd2, Rstlss1, AlertClm0, Drwsy-1, Lt Sdtn-2, Mod Sdtn-3, Dp Sdtn-4, UnArsble-5 18:52 Drug: PlaVIX 300 mg Route: PO; tw2 19:04 Follow up: Response: No adverse reaction jl7 19:05 Drug: NS 0.9% 1000 ml Route: IV; Rate: 1 bolus; Site: left forearm; tw2 19:22 Drug: fentaNYL (PF) 25 mcg Route: IVP; Site: right antecubital; ll2 19:41 Follow up: Response: No adverse reaction; RASS: Alert and Calm (0) ll2 19:40 Drug: NS 0.9% 1000 ml Route: IV; Rate: 1 bolus; Site: left antecubital; ll2 19:41 Drug: fentaNYL (PF) 25 mcg Route: IVP; Site: right antecubital; ll2 19:41 Follow up: Response: No adverse reaction; RASS: Alert and Calm (0) ll2 Disposition: 19:11 Co-signature as Attending Physician, Troy Barragan MD I agree with the assessment and amy plan of care. 19:11 Critical Care:. jr8 Disposition: 05/12/20 19:09 Transfer ordered to [facility]. Diagnosis is ST elevation (STEMI) myocardial infarction involving right coronary artery. - Reason for transfer: Higher level of care. - Accepting physician is Dr. Robertson . - Condition is Fair. - Problem is new. - Symptoms have improved. Critical care time excluding procedures: 19:11 Critical care time: Bedside Care: 20 minutes, Consultation: 10 minutes. Total time: 30 jr8 minutes Signatures: Dispatcher [employer] EDMS Troy Barragan MD MD cha Roszak, Josh, PA PA jr8 Katelynn Harper, RN RN tw2 Shanique Mason RN RN jl7 Keisha Gillette, RN RN Sabi Tyler, RN RN ll2 Shanique Mason RN jl7 Corrections: (The following items were deleted from the chart) 20:05 19:09 05/12/2020 19:09 Transfer ordered to [facility]. ll2 Diagnosis is ST elevation (STEMI) myocardial infarction involving right coronary artery. Reason for transfer: Higher level of care. Accepting physician is Dr. Robertson . Condition is Fair. Problem is new. Symptoms have improved. jr8
[2020-05-12 19:13] LABS: Absolute Lymphocytes (CBC) 2.2 K/uL (0.7-4.9); Basophils % 0.7 % (0-1.3); Hematocrit 45.1 % (39.6-49.0); Lymphocytes % 18.2 % (15.3-44.8); MPV 9.7 fL (7.6-11.3); RBC Red Blood Cell Count 5.14 M/uL (4.33-5.43)
[2020-05-12 19:17] LABS: Protime INR 1.03
[2020-05-12] MEDS ORDERED: FENTANYL CITR 100 MCG/2 ML ONE (19:28)
[2020-05-12] MEDS ORDERED: ONDANSETRON 4 MG/2 ML VIAL ONE (19:28)
[2020-05-12 19:33] LABS: Albumin 4.8 g/dL (3.4-5.0); Bilirubin Direct 0.1 mg/dL (0-0.2); Bilirubin Total 0.6 mg/dL (0.2-1.0); Magnesium 2.2 mg/dL (1.8-2.4); Potassium 3.8 mmol/L (3.5-5.1); Protein, Total 8.1 g/dL (6.4-8.2); Troponin (Emerg Dept Use Only) 0.05 ng/mL (0.0-0.045)
--- NOTE | 2020-05-12 19:38 | RAD REPORT ---
EXAM DESCRIPTION: RAD - Chest Single View - 05/12/2020 7:27 pm CLINICAL HISTORY: CHEST PAIN Chest pain. COMPARISON: Chest Single View dated 11/03/2018; Chest Pa And Lat (2 Views) dated 04/05/2017; CHEST SINGL E VIEW dated 10/14/2014; CHEST PA AND LAT 2 VIEW dated 02/05/2014 FINDINGS: Portable technique limits examination quality. The lungs are grossly clear. The heart is normal in size. No displaced fractures.Right clavicular earl dware plate. IMPRESSION: No acute intrathoracic process suspected.
[2020-05-12] MEDS ORDERED: NA CHLORIDE 0.9% 2,000 ML ONE (19:48)
[2020-05-12 20:35] VITALS: O2SAT 100
[2020-05-12 20:36] VITALS: BP 94/60
--- NOTE | 2020-05-14 07:16 | EKG ---
Test Date: 2020-05-12 Test Time: 19:32:23 [employer] Law And Policy Professor: SAMIRA MEASUREMENT RESULTS: Intervals: Rate: 66 [place]: 136 QRSD: 104 QT: 472 QTc: 494 [place]: P: 36 [place]: 136 QRS: 67 T: 67 INTERPRETIVE STATEMENTS: Sinus rhythm with occasional premature ventricular complexes and fusion complexes ST elevation, consider inferior injury or acute infarct Prolonged QT ACUTE [place] Consider right ventricular involvement in acute inferior infarct Abnormal ECG Compared to ECG 05/12/2020 18:42:34 Fusion complex(es) now present Ventricular premature complex(es) now present Prolonged QT interval now present ST (T wave) deviation still present Myocardial infarct finding still present Electronically Signed On 05-14-20 07:13:55 CDT by Mario Wilcox
--- NOTE | 2020-05-14 07:16 | EKG ---
Test Date: 2020-05-12 Test Time: 18:41:29 Mandolin Repairer: JOSIAH MEASUREMENT RESULTS: Intervals: Rate: 68 [place]: 144 QRSD: 106 QT: 412 QTc: 438 [place]: P: 71 [place]: 144 QRS: 64 T: 70 INTERPRETIVE STATEMENTS: Sinus rhythm with blocked premature atrial complexes ST elevation, consider inferior injury or acute infarct ACUTE [place] Consider right ventricular involvement in acute inferior infarct Abnormal ECG Compared to ECG 11/03/2018 17:01:00 Atrial premature complex(es) now present Myocardial infarct finding now present Myocardial infarct finding now present Sinus tachycardia no longer present ST (T wave) deviation still present Electronically Signed On 05-14-20 07:14:03 CDT by Mario Wilcox
--- NOTE | 2020-05-14 07:16 | EKG ---
Test Date: 2020-05-12 Test Time: 19:42:25 Knotter Hand: SAMIRA MEASUREMENT RESULTS: Intervals: Rate: 66 [place]: 146 QRSD: 100 QT: 458 QTc: 480 [place]: P: 44 [place]: 146 QRS: 71 T: 62 INTERPRETIVE STATEMENTS: Normal sinus rhythm Septal infarct, age undetermined Abnormal ECG Compared to ECG 05/12/2020 19:32:23 Fusion complex(es) no longer present Ventricular premature complex(es) no longer present ST (T wave) deviation no longer present Prolonged QT interval no longer present Myocardial infarct finding still present Electronically Signed On 05-14-20 07:13:48 CDT by Mario Wilcox
--- NOTE | 2020-05-14 07:16 | EKG ---
Test Date: 2020-05-12 Test Time: 18:42:34 Mannequin Refinisher: JOSIAH MEASUREMENT RESULTS: Intervals: Rate: 65 ME: 146 QRSD: 108 QT: 440 QTc: 457 [place]: P: 57 ME: 146 QRS: 57 T: 68 INTERPRETIVE STATEMENTS: Normal sinus rhythm ST elevation, consider inferior injury or acute infarct ACUTE [place] Consider right ventricular involvement in acute inferior infarct Abnormal ECG Compared to ECG 05/12/2020 18:41:29 Atrial premature complex(es) no longer present ST (T wave) deviation still present Myocardial infarct finding still present Myocardial infarct finding still present Electronically Signed On 05-14-20 07:13:58 CDT by Mario Wilcox
== END 2020-05-12 20:05 | disposition short-term general hospital (02) ==
LOC: ER 18:39
DX: I21.11 ST elevation (STEMI) myocardial infarction involving right coronary artery (principal); F10.20 Alcohol dependence, uncomplicated; J45.909 Unspecified asthma, uncomplicated
CPT/HCPCS: 92977 ×2; 93005 ×4; 85025; 80048; 36415; 83735; 85610; 80076; 84484; 83880; 71045; 96375; 96374; 99285; J3010; J7030; J2405

== ENCOUNTER 2021-06-09 05:53 | Observation (INO) | payer BC ==
[2021-06-09] MEDS ORDERED: ONDANSETRON 4 MG/2 ML VIAL ONE ×2 (07:06→18:17)
[2021-06-09] MEDS ORDERED: MORPHINE 4 MG/ML SYR ONE (07:06)
[2021-06-09] MEDS ORDERED: FAMOTIDINE 20 MG/2 ML VIAL IV ONE (07:07)
[2021-06-09] MEDS ORDERED: NA CHLORIDE 0.9% 1,000 ML ONE (07:07)
[2021-06-09 07:16] LABS: Absolute Lymphocytes (CBC) 2.5 K/uL (0.7-4.9); Basophils % 0.5 % (0-1.3); Hematocrit 39.6 % (39.6-49.0); Lymphocytes % 23.3 % (15.3-44.8); MPV 8.3 fL (7.6-11.3); RBC Red Blood Cell Count 4.52 M/uL (4.33-5.43)
[2021-06-09 07:32] LABS: Albumin 3.8 g/dL (3.4-5.0); Bilirubin Direct 0.2 mg/dL (0-0.2); Bilirubin Total 0.7 mg/dL (0.2-1.0); Potassium 3.8 mmol/L (3.5-5.1)
--- NOTE | 2021-06-09 08:51 | RAD REPORT ---
EXAM DESCRIPTION: CT - Stone Protocol - 06/09/2021 8:37 am CLINICAL HISTORY: Flank pain. FLANK PAIN COMPARISON: CT ABD PELVIS W CONTRAST dated 08/01/2014 TECHNIQUE: Axial images were obtained without oral or IV contrast. Lack of contrast limits solid org an and vascular assessment. The [id number] spans the entirety of the system partially obscuring uppermost abdomen and lung bases. Coronal reformatted images were obtained and reviewed. All CT scans are performed using dose optimization technique as appropriate and may include automated exposure control or mA/KV adjustment according to patient size. FINDINGS: 4 mm nodule seen in the left lung base laterally, likely benign. Small hiatal hernia. Imaged portions of the liver and spleen show no suspicious findings on non-contrast imaging. The panc reas and adrenal glands are normal. No pathologic lymphadenopathy in the abdomen or pelvis. No urinary tract stones or obstructive uropathy. No bowel obstruction, free air, free fluid or abscess. Normal appendix noted. Mild lumbar degenerative changes. Small bilateral fat containing inguinal hernias. IMPRESSION: No urinary tract stones or obstructive uropathy. Small fat containing bilateral inguinal hernias.
--- NOTE | 2021-06-09 09:27 | RAD REPORT ---
EXAM DESCRIPTION: US - Abdomen Exam Limited - 06/09/2021 6:41 am CLINICAL HISTORY: RUQ pain COMPARISON: ABDOMINAL EXAM LIMITED dated 10/14/2014 FINDINGS: The gallbladder demonstrates no gallstones. No pericholecystic fluid or gallbladder wall t hickening. The common bile duct is normal measuring 3 mm. The liver demonstrates no findings of intrahepatic biliary dilatation. IMPRESSION: Unremarkable examination.
--- NOTE | 2021-06-09 09:31 | EDPHYS ---
Physician Documentation [facility] Name: Karthikeyan Mccormick Age: 55 yrs Sex: Male : 1965 Arrival Date: 06/09/2021 Time: 05:56 Bed 16 Private MD: ED Physician Justin Barton HPI: 06/09 06:30 This 55 yrs old Male presents to ER via Ambulatory with complaints of Flank cp Pain. 06:30 The patient complains of pain in the right upper flank. The pain radiates to the right cp mid back. Onset: The symptoms/episode began/occurred this morning. Associated signs and symptoms: Pertinent positives: nausea, Pertinent negatives: fever, hematuria, pain radiating to the lower extremities, vomiting, chest pain. Severity of pain: in the emergency department the pain is unchanged despite home interventions. The patient has experienced similar episodes in the past, multiple times, today's symptoms are similar, to when the patient was apparently diagnosed with to previous gallbladder attacks. 06:30 of patient reports patient has seen DR Munguia in the past who recommended cp cholecystectomy due to decreased function of gallbladder. Patient has not followed up for elective surgery and comes into the ED due to frequent episodes of right flank/upper abdomen pain. Historical: - Allergies: 06:15 Aleeve; dc2 06:15 Aleve; bb - Home Meds: 06:15 Bystolic oral [Active]; candesartan oral [Active]; Plavix Oral [Active]; Aspirin Oral bb [Active]; Lipitor Oral [Active]; Zetia Oral [Active]; Fluoxetine Oral [Active]; Trileptal oral [Active]; - PMHx: 06:15 alcholism; Asthma; dc2 06:15 alcoholisim; Asthma; CAD; Hypertensive disorder; Depressive disorder; Myocardial bb infarction; - PSHx: 06:15 R shoulder; right knee; left thumb; bb - Immunization history:: Adult Immunizations up to date, Client reports having NOT received the Covid vaccine. - Social history:: Smoking status: Patient denies any tobacco usage or history of. ROS: 06:35 Constitutional: Negative for body aches, chills, fever, poor PO intake. cp 06:35 Eyes: Negative for injury, pain, redness, and discharge. cp 06:35 ENT: Negative for ear pain, sore throat, difficulty swallowing, difficulty handling secretions. 06:35 Cardiovascular: Negative for chest pain, edema, palpitations. 06:35 Respiratory: Negative for cough, shortness of breath, wheezing. 06:35 Abdomen/GI: Positive for nausea, Negative for vomiting, diarrhea, constipation, anorexia. 06:35 Back: Positive for flank pain, on the right. 06:35 : Negative for urinary symptoms, testicular pain 06:35 Neuro: Negative for altered mental status, headache, weakness. 06:35 All other systems are negative. Exam: 06:40 Constitutional: The patient appears in no acute distress, alert, awake, cp non-diaphoretic, non-toxic, well developed, well nourished. 06:40 Head/Face: Normocephalic, atraumatic. cp 06:40 Eyes: Periorbital structures: appear normal, Conjunctiva: normal, no exudate, no injection, Sclera: no appreciated abnormality, Lids and lashes: appear normal, bilaterally. 06:40 ENT: External ear(s): are unremarkable, Nose: is normal, Mouth: Lips: moist, Oral mucosa: moist, Posterior pharynx: Airway: no evidence of obstruction, patent. 06:40 Neck: ROM/movement: is normal, is supple, without pain, no range of motions limitations. 06:40 Chest/axilla: Inspection: normal, Palpation: is normal, no crepitus, no tenderness. 06:40 Cardiovascular: Rate: normal, Rhythm: regular, Edema: is not appreciated, JVD: is not appreciated. 06:40 Respiratory: the patient does not display signs of respiratory distress, Respirations: normal, no use of accessory muscles, no retractions, labored breathing, is not present, Breath sounds: are clear throughout, no decreased breath sounds, no stridor, no wheezing. 06:40 Abdomen/GI: Inspection: abdomen appears normal, Bowel sounds: active, all quadrants, Palpation: soft, in all quadrants, moderate abdominal tenderness, in the anterior aspect of right lateral abdomen and right upper quadrant, rebound tenderness, is not appreciated, involuntary guarding, is not appreciated. 06:40 Neuro: Orientation: to person, place \\T\\ time. Mentation: is normal, Motor: moves all fours, strength is normal, Sensation: is normal. Vital Signs: 06:13 BP 120 / 83; Pulse 64; Resp 18 S; Temp 97.9(O); Pulse Ox 95% on R/A; Weight 108.86 kg bb (R); Height 6 ft. 1 in. (185.42 cm) (R); Pain 7/10; 07:00 BP 115 / 65; Pulse 58; Resp 20; Pulse Ox 100% on R/A; Pain 8/10; dc2 09:00 BP 110 / 74; Pulse 59; Resp 16; Pulse Ox 96% ; bp 11:00 BP 98 / 54; Pulse 57; Resp 16; Pulse Ox 97% ; bp 06:13 Body Mass Index 31.66 (108.86 kg, 185.42 cm) bb MDM: 06:10 Patient medically screened. cp 07:00 Differential diagnosis: pyelonephritis, UTI, diverticulitis, pancreatitis, ruptured cp AAA, dissecting AAA, cholecystitis. 09:05 Data reviewed: vital signs, nurses notes, lab test result(s), radiologic studies, CT cp scan, ultrasound. 09:05 ED course: of patient requesting I contact DR Munguia due to frequents episodes of cp pain and recommendation of cholecystectomy in the past. 09:07 Physician consultation: Simeon Munguia MD was called at 09:07, left message on voicemail. 09:30 Physician consultation: Simeon Munguia MD was contacted at 09:30, regarding admission, cp to the telemetry unit. patient's condition, will admit to hospitalist for cardiac clearance and to have cholecystectomy performed later today by DR Munguia. 09:35 Physician consultation: Donnie Heredia MD was contacted at 09:30, regarding admission, cp to the telemetry unit. patient's condition, and will see patient in ED, shortly. 06/09 06:18 Order name: Basic Metabolic Panel; Complete Time: 08:03 cp 06/09 08:04 Interpretation: Normal except: CL 109; GFR 86. cp 06/09 06:18 Order name: CBC with Diff; Complete Time: 07:23 cp 06/09 07:23 Interpretation: Normal except: HGB 13.4; EOSINOPHIL % 6.0; EOSA 0.6. cp 06/09 06:18 Order name: Hepatic Function; Complete Time: 08:03 cp 06/09 08:04 Interpretation: Reviewed. cp 06/09 06:18 Order name: Lipase; Complete Time: 08:03 06/09 08:04 Interpretation: LIP 117; Reviewed. 06/09 06:18 Order name: Urine Microscopic Only 06/09 10:07 Order name: SARS-COV-2 RT PCR (Document "Date of Onset" if Symptomatic) iw 06/09 06:18 Order name: US Abdomen Limited 06/09 08:10 Order name: CT Stone Protocol; Complete Time: 08:57 06/09 08:59 Interpretation: Report reviewed. 06/09 10:27 Order name: Urine Dipstick-Ancillary EDMS 06/09 06:18 Order name: IV Saline Lock; Complete Time: 07:04 06/09 06:18 Order name: Labs collected and sent; Complete Time: 07:04 06/09 06:18 Order name: Urine Dipstick-Ancillary (obtain specimen); Complete Time: 10:42 06/09 10:31 Order name: CONS Physician Consult EDMS Administered Medications: 07:00 Drug: NS 0.9% 500 ml Route: IV; Rate: bolus; Site: right antecubital; bp 11:12 Follow up: IV Status: Completed infusion bp 07:00 Drug: NS 0.9% 500 ml Route: IV; Rate: 125 ml/hr; Site: right antecubital; bp 07:00 Drug: Zofran (Ondansetron) 4 mg Route: IVP; Site: right antecubital; bp 09:31 Follow up: Response: No adverse reaction bp 07:00 Drug: Pepcid (famotidine) 20 mg Route: IVP; Site: right antecubital; bp 09:31 Follow up: Response: No adverse reaction bp 07:00 Drug: morphine 4 mg Route: IVP; Site: right antecubital; bp 09:30 Follow up: Response: Pain is decreased bp 10:00 Drug: Zosyn (piperacillin-tazobactam) 3.375 grams Route: IVPB; Infused Over: 60 mins; bp Site: right antecubital; 11:13 Follow up: IV Status: Completed infusion bp Disposition: 16:18 Co-signature as Attending Physician, Justin Barton MD. pkl Disposition Summary: 06/09/21 09:30 Hospitalization Ordered Hospitalization Status: Inpatient Admission cp Provider: Donnie Heredia cp Location: Telemetry/MedSurg (Inpatient) cp Condition: Stable cp Problem: new cp Symptoms: have improved cp Bed/Room Type: Standard cp Room Assignment: 229(06/09/21 12:42) bd Diagnosis - Upper abdominal pain, unspecified - intractable cp Forms: - Medication Reconciliation Form cp - SBAR form cp Signatures: Dispatcher [employer] EDVelvet Marino Diana, RN RN dw Justin Barton MD MD pkl Ballard, Brenda, RN RN bb Troy Frey PA PA cp Nelson Arambula RN RN Kaila Sheets RN RN dc2 Corrections: (The following items were deleted from the chart) 06:17 06:15 Allergies: No Known Allergies; dc2 dc2 06:24 06:15 PMHx: alcholism; bb bb 07:23 07:23 Normal except: HGB 13.4. cp cp 07:23 07:23 Normal except: HGB 13.4; EOSINOPHIL % 6.0. cp cp 11:50 09:30 cp dw 12:42 11:50 225 dw bd
--- NOTE | 2021-06-09 09:31 | ER ---
Nurse's Notes [facility] Name: Karthikeyan Mccormick Age: 55 yrs Sex: Male : 1965 Arrival Date: 06/09/2021 Time: 05:56 Bed 16 Private MD: Diagnosis: Upper abdominal pain, unspecified-intractable Presentation: 06/09 06:13 Chief complaint: Patient states: he has hx of gallbladder problems which flare up bb intermittently now is having right upper abdominal pain with nausea since approx 2300 last night. Coronavirus screen: At this time, the client does not indicate any symptoms associated with coronavirus-19. Ebola Screen: No symptoms or risks identified at this time. Initial Sepsis Screen: Does the patient meet any 2 criteria? No. Patient's initial sepsis screen is negative. Does the patient have a suspected source of infection? No. Patient's initial sepsis screen is negative. Risk Assessment: Do you want to hurt yourself or someone else? Patient reports no desire to harm self or others. Onset of symptoms was June 08, 2021. 06:13 Method Of Arrival: Ambulatory bb 06:13 Acuity: MELQUIADES 3 bb Triage Assessment: 06:15 General: Appears in no apparent distress. Behavior is calm, cooperative. Pain: dc2 Complains of pain in Right upper abdominal quadrant. Historical: - Allergies: 06:15 Aleeve; dc2 06:15 Aleve; bb - Home Meds: 06:15 Bystolic oral [Active]; candesartan oral [Active]; Plavix Oral [Active]; Aspirin Oral bb [Active]; Lipitor Oral [Active]; Zetia Oral [Active]; Fluoxetine Oral [Active]; Trileptal oral [Active]; - PMHx: 06:15 alcholism; Asthma; dc2 06:15 alcoholisim; Asthma; CAD; Hypertensive disorder; Depressive disorder; Myocardial bb infarction; - PSHx: 06:15 R shoulder; right knee; left thumb; bb - Immunization history:: Adult Immunizations up to date, Client reports having NOT received the Covid vaccine. - Social history:: Smoking status: Patient denies any tobacco usage or history of. Screenin:15 Abuse screen: Denies threats or abuse. Denies injuries from another. Nutritional dc2 screening: No deficits noted. Tuberculosis screening: No symptoms or risk factors identified. Never had TB. Fall Risk None identified. No fall in past 12 months (0 pts). No secondary diagnosis (0 pts). No IV (0 pts). Ambulatory Aid- None/Bed Rest/Nurse Assist (0 pts). Gait- Normal/Bed Rest/Wheelchair (0 pts) Mental Status- Oriented to own ability (0 pts). Total Muniz Fall Scale indicates No Risk (0-24 pts). Assessment: 06:40 Reassessment:. dc2 07:00 General: Appears in no apparent distress. uncomfortable, obese, well groomed, Behavior dc2 is calm, cooperative. Pain: Complains of pain in right upper abdominal quadrant. Neuro: No deficits noted. Level of Consciousness is awake, alert, obeys commands, Oriented to person, place, time, Cardiovascular: No deficits noted. Denies chest pain, palpitations, shortness of breath. Respiratory: No deficits noted. Airway is patent Breath sounds are clear bilaterally. GI: No deficits noted. Abdomen is round non-distended, obese, Bowel sounds present X 4 quads. Reports upper abdominal pain, nausea, Patient currently denies vomiting. : No deficits noted. No signs and/or symptoms were reported regarding the genitourinary system. Derm: No deficits noted. No signs and/or symptoms reported regarding the dermatologic system. Skin is intact, is healthy with good turgor. Musculoskeletal: No deficits noted. No signs and/or symptoms reported regarding the musculoskeletal system. 07:00 Reassessment: RECD REPORT FROM KAILA MOLINA. 55YO WM P/W FLANK PAIN, BELIEVED TO BE 2/2 bp PRE-EXISTING DEACON PROBLEMS. U/S COMPLETE, RESULTS PENDING. 10:00 Reassessment: No changes from previously documented assessment. Patient and/or family bp updated on plan of care and expected duration. Pain level reassessed. PT SEEN BY HOSPITALIST, DR HEREDIA. 11:08 Reassessment: No changes from previously documented assessment. Patient and/or family bp updated on plan of care and expected duration. Pain level reassessed. PT SEEN BY DR ZUÑIGA. Vital Signs: 06:13 BP 120 / 83; Pulse 64; Resp 18 S; Temp 97.9(O); Pulse Ox 95% on R/A; Weight 108.86 kg bb (R); Height 6 ft. 1 in. (185.42 cm) (R); Pain 7/10; 07:00 BP 115 / 65; Pulse 58; Resp 20; Pulse Ox 100% on R/A; Pain 8/10; dc2 09:00 BP 110 / 74; Pulse 59; Resp 16; Pulse Ox 96% ; bp 11:00 BP 98 / 54; Pulse 57; Resp 16; Pulse Ox 97% ; bp 06:13 Body Mass Index 31.66 (108.86 kg, 185.42 cm) bb ED Course: 05:56 Patient arrived in ED. bp1 06:00 Arm band placed on right wrist. dc2 06:06 Troy Frey PA is PHCP. cp 06:06 Jignesh Heredia MD is Attending Physician. cp 06:15 Triage completed. bb 06:15 Patient has correct armband on for positive identification. Allergy band placed. Placed dc2 in gown. Bed in low position. Call light in reach. Side rails up X 1. stenciling machine tender on. Pulse ox on. NIBP on. 06:16 Kaila Yates RN is Primary Nurse. dc2 06:20 Ultrasound at bedside. dc2 06:30 No provider procedures requiring assistance completed. dc2 06:42 US Abdomen Limited In Process Unspecified. EDMS 06:45 Inserted saline lock: 20 gauge in right antecubital area, using aseptic technique. dc2 Blood collected. 07:04 Basic Metabolic Panel Sent. dc2 07:04 CBC with Diff Sent. dc2 07:04 Hepatic Function Sent. dc2 07:04 Lipase Sent. dc2 07:17 Report given to TRACY Damon. dc2 07:18 Primary Nurse role handed off by Kaila Yates RN bp 07:18 Nelson Arambula, TRACY is Primary Nurse. bp 07:31 Justin Barton MD is Attending Physician. cp 08:37 CT Stone Protocol In Process Unspecified. EDMS 09:29 Donnie Heredia MD is Hospitalizing Provider. cp 10:38 EKG done, by ED staff, reviewed by Donnie Heredia MD EKG COMPLETED BY Jeff HAN. [email or web address] Administered Medications: 07:00 Drug: NS 0.9% 500 ml Route: IV; Rate: bolus; Site: right antecubital; bp 11:12 Follow up: IV Status: Completed infusion bp 07:00 Drug: NS 0.9% 500 ml Route: IV; Rate: 125 ml/hr; Site: right antecubital; bp 07:00 Drug: Zofran (Ondansetron) 4 mg Route: IVP; Site: right antecubital; bp 09:31 Follow up: Response: No adverse reaction bp 07:00 Drug: Pepcid (famotidine) 20 mg Route: IVP; Site: right antecubital; bp 09:31 Follow up: Response: No adverse reaction bp 07:00 Drug: morphine 4 mg Route: IVP; Site: right antecubital; bp 09:30 Follow up: Response: Pain is decreased bp 10:00 Drug: Zosyn (piperacillin-tazobactam) 3.375 grams Route: IVPB; Infused Over: 60 mins; bp Site: right antecubital; 11:13 Follow up: IV Status: Completed infusion bp Outcome: 09:30 Decision to Hospitalize by Provider. cp 13:01 Patient left the ED. [email or web address] Signatures: Dispatcher [employer] EDVeronica Frazier RN RN bb Page, Corey, PA PA Nelson Mancuso RN RN Mireya Lorenzo kj1 Holly Ortega [facility] Kaila Yates RN RN dc2 Corrections: (The following items were deleted from the chart) 06:17 06:15 Allergies: No Known Allergies; dc2 dc2 06:24 06:15 PMHx: alcholism; filomena butt 10:39 10:38 EKG done, by ED staff, reviewed by Donnie Heredia MD kj1 kj1 11:08 07:00 Reassessment: RECD REPORT FROM TRACY. 55YO WM P/W FLANK PAIN, BELIEVED TO BE 2/2 bp PRE-EXISTING DEACON PROBLEMS. U/S COMPLETE, RESULTS PENDING bp 11:10 11:08 Reassessment: PT SEEN BY DR ZUÑIGA bp bp
[2021-06-09] MEDS ORDERED: NA CHLORIDE 0.9% 100 ML ONE (10:04)
[2021-06-09] MEDS ORDERED: PIPERACIL/TAZO 3.375 GM VIAL IV ONE (10:04)
[2021-06-09 10:27] LABS: Urine Blood Negative (Negative); Urine Glucose Negative (Negative); Urine Protein Negative (Negative)
[2021-06-09] MEDS ORDERED: ONDANSETRON 4 MG/2 ML VIAL IV PRN ×2 (10:38→18:12)
[2021-06-09] MEDS ORDERED: MORPHINE 4 MG/ML SYR IV PRN ×2 (10:38→18:12)
--- NOTE | 2021-06-09 10:43 | P.HP ---
Certification for Inpatient Patient admitted to: Observation With expected LOS: <2 Midnights Practitioner: I am a practitioner with admitting privileges, knowledge of patient current condition, hospital course, and medical plan of care. Services: Services provided to patient in accordance with Admission requirements found in Title 42 Section 412.3 of the Code of Federal Regulations Patient History Date of Service: 06/09/21 Reason for admission: RUQ pain, recurrent History of Present Illness: 55-year-old male, PMH: CAD s/p stents (05/2020), HTN, depression/anxiety, asthma. Patient presents to ER due to severe right upper quadrant abdominal pain. Pain began last night around 10/11 PM while at work. Patient denies any recent strenuous activity, no recent trauma. He reports history of "gallbladder pain". He states this has occurred for several years, had a abnormal HIDA scan with 40% EF. He is in the process of being set up for outpatient cholecystectomy, however the pain became severe. He denies any recent fever, no diarrhea. In the ED, he was noted to be afebrile, vitals okay, lab work rather unremarkable. He was noted to be in significant pain. He was given pain medication with slight improvement. ER provider spoke with general surgery who recommended cholecystectomy. Allergies No Known Drug Allergies Allergy (Verified 10/17/14 10:34) Unknown No Known Allergies Allergy (Uncoded 03/23/18 23:46) Unknown Home Medications: Budesonide/Formoterol Fumarate [Symbicort 160-4.5 Mcg Inhaler] 2 puff IH Q6HP PRN 11/03/18 Albuterol Sulfate [Proair Hfa] 2 puff IH TID PRN #1 hfa.aer.ad 11/04/18 Cetirizine HCl [Zyrtec] 10 mg PO DAILY #30 tablet 11/04/18 Epinephrine [Epipen] 0.3 mg IJ SEECOM #3 gregg 11/04/18 Famotidine [Pepcid AC] 20 mg PO BID #60 tablet 11/04/18 predniSONE [Deltasone*] 10 mg PO SEECOM #15 tab 11/04/18 - Past Medical/Surgical History Diabetic: No -: CAD s/p stent 05/2020 -: Asthma -: Depression/anxiety -: HTN -: right shoulder -: right knee -: left ankle -: left thumb - Family History Father -: Lung disease, Other (see notes) Notes: COPD Mother -: Lung disease, Other (see notes) Notes: COPD - Social History Smoking Status: Never smoker Alcohol use: No CD- Drugs: No Caffeine use: Yes Place of Residence: Home Review of Systems 10-point ROS is otherwise unremarkable Physical Examination - Physical Exam General: Alert, Oriented x3, Other (Appears uncomfortable) HEENT: PERRLA, Sclerae nonicteric Neck: Supple Respiratory: Clear to auscultation bilaterally, Normal air movement Cardiovascular: No edema, Regular rate/rhythm Capillary refill: <2 Seconds Gastrointestinal: Non-distended, Tenderness (moderate RUQ tenderness, no rebound) Musculoskeletal: No erythema, No tenderness Integumentary: No rashes, No significant lesion Neurological: Normal speech, Normal strength at 5/5 x4 extr, Sensation intact - Studies Laboratory Data (last 24 hrs) 06/09/21 07:00: WBC 10.70, Hgb 13.4 L, Hct 39.6, Plt Count 253 06/09/21 07:00: Sodium 140, Potassium 3.8, BUN 12, Creatinine 0.91, Glucose 81, Total Bilirubin 0.7, AST 22, ALT 50, Alkaline Phosphatase 57, Lipase 117 Assessment and Plan - Advance Directives Does patient have a Living Will: No Does patient have a Durable POA for Healthcare: No Physician Review Additional Text: Problem List RUQ pain, recurrent with h/o low EF HIDA scan CAD with NV s/p stents x2 in 05/2020 HTN Depression/Anxiety -patient with recurrent RUQ pain, was being set up for outpatient surgery, but pain became to severe so presented to ED -discussed with general surgery, plan for cholecystectomy this afternoon, pending cardiac clearance -NV ~1 yr ago, compliant with meds, no new issues, has been doing well -cardiology consulted for clearance -continue home meds -SCDs for now, pending surgery -does not appear to have infection, no sepsis. pre-op antibiotics ordered VTE: SCDs Code: full Dispo: anticipate dc home in 24-48hrs pending surgery Time Spent Managing Pts Care (In Minutes): 60
[2021-06-09] MEDS ORDERED: CEFOXITIN/SWI 2gm 2 GM/20 ML SYR IV ONE (10:50)
[2021-06-09] MEDS ORDERED: NA CHLORIDE 0.9% 1,000 ML IV SCH (11:00)
[2021-06-09 14:14] VITALS: BMI 31.6
[2021-06-09] MEDS ORDERED: Ringers Lactate 1,000 ML IV ONE (15:42)
[2021-06-09] MEDS ORDERED: SUCCINYLCHOLINE 20 MG/ML (10 ML) IV ONE (15:59)
[2021-06-09] MEDS ORDERED: propofoL 200 MG/20 ML VIAL IV ONE (16:05)
[2021-06-09] MEDS ORDERED: ROCURONIUM 50 MG/5 ML VIAL IV ONE (16:05)
[2021-06-09] MEDS ORDERED: MIDAZOLAM HCL 2 MG/2 ML INJ ONE (16:05)
[2021-06-09] MEDS ORDERED: FENTANYL CITR 250 MCG/5 ML ONE (16:05)
--- NOTE | 2021-06-09 16:18 | P.CNS ---
Date of Consult: 06/09/21 PC: This 55-year-old male presented to the emergency room with severe right upper quadrant abdominal pain rating into his back for diagnosis and treatment. HPC: Patient has had a history of right upper quadrant abdominal pain. On work- up his CT scan was negative as was his ultrasound. He did have a HIDA scan at another facility and it came back as positive. PSHx: NAD PMHx: Patient had a heart attack last year Social Hx: No known allergies Sys R: No cough, wheeze, shortness of breath. No chest pain or palpitations. Denies any urinary complaints. Says he is otherwise been in good health, and can easily walk up a city block. O/E: Awake alert vital signs are stable HEENT: Nonicteric Chest: Air entry equal bilaterally Abd: Tender in the right upper quadrant Trinity: Intact Data: Patient has an outside HIDA scan which shows a low ejection fraction and confirmation of pain when challenged. Impression: Chronic cholecystitis, biliary colic Plan: I will take him to the operating room for laparoscopic possible open cholecystectomy with a cholangiogram. The risks of this procedure have been discussed. The possibility of bleeding, infection, injury to bile ducts blood vessels and intestines has been described. The possible need for an open and/or further surgeries and procedures was discussed. He understands and wants to proceed.
[2021-06-09] MEDS ORDERED: EPHEDRINE SULF 50 MG/ML VIAL ONE (16:45)
[2021-06-09] MEDS ORDERED: GLYCOPYRROLATE 0.2 MG/ML SYR ONE (17:25)
[2021-06-09] MEDS ORDERED: NEOSTIGMINE 1 MG/ML -5 ML ONE (17:25)
--- NOTE | 2021-06-09 17:52 | P.OP ---
Preoperative diagnosis: Acute on chronic cholecystitis with cholelithiasis, biliary colic Postoperative diagnosis: The same Primary procedure: Laparoscopic cholecystectomy Secondary procedure: Liver biopsy, Other procedure(s): Cholangiogram, tap block Anesthesia: General Estimated blood loss: Less than 10 cc Specimen: Gallbladder and contents Findings: Distended gallbladder Operative Technique: The patient brought the operating room and placed supine on the table. After the induction of adequate general endotracheal anesthesia, there the abdomen was prepped with a DuraPrep solution, and he was draped in the usual aseptic manner. The umbilical area was infiltrated 0.25% Marcaine. A skin incision was made. This was brought down through the skin and subcutaneous tissue. The Visiport was used to enter the peritoneal cavity and created pneumoperitoneum to approximately 12 mmHg. Under direct vision a 5 mm trocar was placed in the upper midline, and 2 other 5 mm trochars on the right lateral side of the abdomen. At this point we also did a Leland block using approximately 10 cc of 0.25% Marcaine. The patient was then placed in reverse Trendelenburg and the table rolled to the left. We can now visualize the right upper quadrant. We could see a distended gallbladder. It was lying under the liver. There were some adhesions to the serosal surface of the gallbladder that had increased vascularity. These adhesions were gently taken down using selective electrocautery. The Downey's pouch was identified. Applying lateral traction we were able to dissect out and expose the cystic duct and artery. Having obtained the critical view, a clip was placed between the gallbladder and the cystic duct. An opening was made into the cystic duct through which we obtained a cholangiogram. The cholangiogram showed good flow of contrast into the duodenum, no filling defects were noted. The catheter was withdrawn. Clips are now placed on the distal portion of the cystic duct. The cystic artery was clipped and divided in the usual manner. The gallbladder was now dissected free from the liver bed. Attention was now turned towards the right lobe of the liver. Making a small skin incision the James-Cut needle was passed through the anterior abdominal wall. We will able to obtain a biopsy of the right lobe of the liver. This is sent as separate specimen. Turning back to the peritoneal cavity the liver was inspected to ensure adequate hemostasis. The specimen was now placed into an Endo Catch and brought out through the umbilical trocar site. At this point the abdominal fascia was approximated using the Endo Close and an absorbable suture. The pneumoperitoneum was now collapsed, the trochars removed, and the suture tied. Hustler were applied to the skin. At the end of the procedure he was in a stable condition was sent to the recovery room. Needle sponge instrument count were correct. No drains were placed. Complications: None Transferred to: Recovery Room Condition: Good
[2021-06-09] MEDS: MORPHINE 4 MG/ML SYR ONE ×5 (18:10→18:25)
[2021-06-09] MEDS ORDERED: HYDROCODONE/APAP 7.5/325 MG TAB PO PRN (18:12)
[2021-06-10 00:31] VITALS: O2SAT 99
[2021-06-10 07:03] LABS: Absolute Lymphocytes (CBC) 1.6 K/uL (0.7-4.9); Basophils % 0.3 % (0-1.3); Hematocrit 40.7 % (39.6-49.0); Lymphocytes % 14.3 % (15.3-44.8); MPV 8.3 fL (7.6-11.3); RBC Red Blood Cell Count 4.57 M/uL (4.33-5.43)
[2021-06-10 07:25] LABS: Bilirubin Total 0.5 mg/dL (0.2-1.0); Potassium 4.5 mmol/L (3.5-5.1)
[2021-06-10 07:26] LABS: Albumin 3.6 g/dL (3.4-5.0); Protein, Total 6.7 g/dL (6.4-8.2)
[2021-06-10] MEDS ORDERED: FLUOXETINE 20 MG CAP PO SCH (09:30)
[2021-06-10 10:31] VITALS: BP 113/68; TEMP 98.9
--- NOTE | 2021-06-10 10:37 | P.DS ---
Admission Date: 06/09/21 Discharge Date: 06/10/21 Disposition: ROUTINE DISCHARGE Discharge Condition: GOOD Reason for Admission: RUQ pain, recurrent Consultations: General surgery - Dr. Munguia Procedures: CT abdomen (06/09): FINDINGS: 4 mm nodule seen in the left lung base laterally, likely benign. Small hiatal hernia. Imaged portions of the liver and spleen show no suspicious findings on non- contrast imaging. The pancreas and adrenal glands are normal. No pathologic lymphadenopathy in the abdomen or pelvis. No urinary tract stones or obstructive uropathy. No bowel obstruction, free air, free fluid or abscess. Normal appendix noted. Mild lumbar degenerative changes. Small bilateral fat containing inguinal hernias. IMPRESSION: No urinary tract stones or obstructive uropathy. Small fat containing bilateral inguinal hernias. Abdominal ultrasound (06/09): FINDINGS: The gallbladder demonstrates no gallstones. No pericholecystic fluid or gallbladder wall thickening. The common bile duct is normal measuring 3 mm. The liver demonstrates no findings of intrahepatic biliary dilatation. IMPRESSION: Unremarkable examination. Laparoscopic cholecystectomy (06/09): by Dr. Munguia Secondary procedure: Liver biopsy Problem List RUQ pain secondary to chronic cholecystitis CAD with LA s/p stents x2 in 05/2020 HTN Depression/Anxiety Brief History of Present Illness: 55-year-old male, PMH: CAD s/p stents (05/2020), HTN, depression/anxiety, asthma. Patient presents to ER due to severe right upper quadrant abdominal pain. Pain began last night around 10/11 PM while at work. Patient denies any recent strenuous activity, no recent trauma. He reports history of "gallbladder pain". He states this has occurred for several years, had a abnormal HIDA scan with 40% EF. He is in the process of being set up for outpatient cholecystectomy, however the pain became severe. He denies any recent fever, no diarrhea. In the ED, he was noted to be afebrile, vitals okay, lab work rather unremarkable. He was noted to be in significant pain. He was given pain medication with slight improvement. ER provider spoke with general surgery who recommended cholecystectomy. Hospital Course: General surgery was consulted in the ED and recommended cholecystectomy. Cardiology was consulted and patient was deemed medically optimized to proceed with surgery with no further evaluation/work-up preoperatively. Patient underwent laparoscopic cholecystectomy without any complications. He he did well postoperatively and was subsequently discharged home with some pain medication. He is to follow-up with general surgery in 1 week Follow-up PCP Advised to resume his medications on discharge, restart aspirin/Plavix tomorrow (24 hours after surgery) Vital Signs/Physical Exam: Temp Pulse Resp BP Pulse Ox 98.9 F 67 16 113/68 98 06/10/21 08:00 06/10/21 08:00 06/10/21 08:56 06/10/21 08:00 06/10/21 08:56 General: Alert, In no apparent distress, Oriented x3 HEENT: Sclerae nonicteric Neck: Supple Respiratory: Clear to auscultation bilaterally, Normal air movement Cardiovascular: No edema, Regular rate/rhythm Gastrointestinal: Soft and benign, Non-distended Musculoskeletal: No tenderness Integumentary: Other (Surgical dressings: small old dried blood, otherwise ok) Neurological: Normal speech, Normal strength at 5/5 x4 extr, Normal affect Laboratory Data at Discharge: WBC 10.90 K/uL (4.3-10.9) 06/10/21 06:42 Hgb 13.5 g/dL (13.6-17.9) L 06/10/21 06:42 Hct 40.7 % (39.6-49.0) 06/10/21 06:42 Plt Count 235 K/uL (152-406) 06/10/21 06:42 Sodium 143 mmol/L (136-145) 06/10/21 06:42 Potassium 4.5 mmol/L (3.5-5.1) 06/10/21 06:42 BUN 10 mg/dL (7-18) 06/10/21 06:42 Creatinine 0.97 mg/dL (0.55-1.3) 06/10/21 06:42 Glucose 90 mg/dL (74-106) 06/10/21 06:42 Total Bilirubin 0.5 mg/dL (0.2-1.0) 06/10/21 06:42 AST 26 U/L (15-37) 06/10/21 06:42 ALT 53 U/L (12-78) 06/10/21 06:42 Alkaline Phosphatase 60 U/L (45-117) 06/10/21 06:42 Lipase 117 U/L (73-393) 06/09/21 07:00 Home Medications: Budesonide/Formoterol Fumarate [Symbicort 160-4.5 Mcg Inhaler] 2 puff IH Q6HP PRN 11/03/18 Albuterol Sulfate [Proair Hfa] 2 puff IH TID PRN #1 hfa.aer.ad 11/04/18 Cetirizine HCl [Zyrtec] 10 mg PO DAILY #30 tablet 11/04/18 Epinephrine [Epipen] 0.3 mg IJ SEECOM #3 gregg 11/04/18 Famotidine [Pepcid AC] 20 mg PO BID #60 tablet 11/04/18 Fluoxetine HCl 40 mg PO DAILY 06/10/21 Hydrocodone 5/APAP 325 [Roxana 5/325] 1 tab PO Q8H PRN 4 Days #12 tab 06/10/21 New Medications: Hydrocodone 5/APAP 325 [Roxana 5/325] 1 tab PO Q8H PRN 4 Days #12 tab PRN Reason: Pain Diet: AHA Activity: Ad derrick Followup: Simeon Munguia MD [ACTIVE - CAN ADMIT] - Dex Bradley MD [Primary Care Provider] - Time spent managing pt's care (in minutes): 45
--- NOTE | 2021-06-10 11:22 | EKG ---
Test Date: 2021-06-09 Test Time: 10:35:07 [place] Tester: [place] MEASUREMENT RESULTS: Intervals: Rate: 53 NM: 164 QRSD: 102 QT: 468 QTc: 439 [place]: P: 66 NM: 164 QRS: 76 T: 62 INTERPRETIVE STATEMENTS: Sinus bradycardia Otherwise normal ECG Compared to ECG 05/12/2020 19:42:25 Sinus rhythm no longer present Myocardial infarct finding no longer present Electronically Signed On 06-10-21 11:20:28 GENERAL ASSISTANT by Mario Wilcox
[2021-06-10] MEDS ORDERED: FAMOTIDINE 20 MG TAB PO SCH (21:00)
--- OUTSIDE RECORDS SUMMARY | 2021-06-13 17:46 | XMS REPORT | Continuity of Care Document ---
:1965 Author Organization [facility] t Address [address] [place] [address] Care Team Providers Name Role Phone Chantal Bradley Primary Care Physician GAURAV WEBB Attending Clinician Unavailable Amilcar MOLINA, D Attending Clinician Unavailable Only, Db Test Attending Clinician Unavailable Unknown Attending Clinician Unavailable GAURAV WEBB Admitting Clinician Unavailable Payers Payer Name Policy Type Policy Number Effective Date Expiration Date S nicki BCBS OS [id number] 2017 00:00:00 POS/PPO/EPO Problems Condition Condition Condition Status Onset Resolution Last Treating Co mments Source Name Details Category Date Date Treatment Clinician Date Trauma Trauma Disease Active 2018- [facility] 4-05 [facility] of 00:00: [place] [address] [facility] Obesity Obesity Disease Active [facility] (BMI (BMI 4-05 ity of 30-39.9) 30-39.9) 00:00: [place] [address] Medical Branch Allergies, Adverse Reactions, Alerts Allergy Allergy Status Severity Reaction(s) Onset Inactive Treating Comm ents Source Name Type Date Date Clinician NAPROXEN Allergy Active 2019-[address] [facility]: Medical [address] [place] [address] Social History Social Habit Start Date Stop Date Quantity Comments Source Exposure to Yes [facility] SARS-CoV-2 (event) Medica l Branch Sex Ass[birth year] At [birth year] [facility] 00:[facility]:00:00 Medical Branch Smoking Status Start Date Stop Date Source Never smoker [facility] Medical Branch Medications Ordered Filled Start Stop Current Ordering Indication Dosage Frequency Signature Comments Components Source Medication Medication Date Date Medication? Clinician (SIG) Name Name cyclobenzap Yes [id number] 5mg Take 1 [facility] rine 5 mg 4-05 tablet by ity o f tablet 00:00: mouth 3 [place] 00 (three) Medical times Branch daily. cyclobenzap Yes [id number] 5mg Take 1 [facility] rine 5 mg 4-05 tablet by ity o f tablet 00:00: mouth 3 [place] 00 (three) Medical times Branch daily. Vital Signs Vital Name Observation Time Observation Value Comments Source WEIGHT 2020-05-18 06:00:00 99.111 kg WEIGHT 2020-05-17 05:20:00 97.523 kg WEIGHT 2020-05-16 05:45:00 97.977 kg WEIGHT 2020-05-15 04:36:00 97.841 kg HEIGHT 2020-05-14 18:19:00 185.4 cm WEIGHT 2020-05-14 18:19:00 99.791 kg HEIGHT 2020-05-13 08:37:00 185.4 cm HEIGHT 2020-05-12 21:07:00 185.4 cm WEIGHT 2020-05-12 21:07:00 99.791 kg WEIGHT 2020-05-18 06:00:00 99.111 kg WEIGHT 2020-05-17 05:20:00 97.523 kg WEIGHT 2020-05-16 05:45:00 97.977 kg WEIGHT 2020-05-15 04:36:00 97.841 kg HEIGHT 2020-05-14 18:19:00 185.4 cm WEIGHT 2020-05-14 18:19:00 99.791 kg HEIGHT 2020-05-13 08:37:00 185.4 cm HEIGHT 2020-05-12 21:07:00 185.4 cm WEIGHT 2020-05-12 21:07:00 99.791 kg Procedures This patient has no known procedures. Encounters Start End Encounter Admission Attending Care Care Encounter Source Date/Time Date/Time Type Type Clinicians Facility Department ID 2020-05-12 Inpatient ER JED WEBB Cardiology [id number] [facility] 20:26:00 CHASIDY 2021-04-11 2021-04-11 Telephone EILEEN Fitzgerald [id number] [facility] 00:00:00 00:00:00 Lucrecia CHAPMAN [id number] i ty of [facility] [id number] Chu as [id number] [address] 2021-04-09 2021-04-09 Laboratory Only, Ang Db Test [facility] 1.2.8 40.114 [id number] [facility] 14:21:41 14:31:41 Only Unknown, Attending Health [id number] ity [facility] [id number] Chu as Real?Blea [phone] [facility] [address] [facility] [address] Results Test Description Test Time Test Comments Results Result Comments Source POCT-ACT 2020-05-17 15:20:00 Test Item Value Reference Range Interpretation Comme nts ACTIVATED CLOTTING TIME (BEAKER) 197 sec : 74-137 seconds, Baseline: TESTED AT (test code = 441) [address], [address]: Roll Weigher/Techni harsh ID = [id number] for SOFIA, MICHAEL [id number] 14:36:00 Test Item Value Reference Range Interpretation Comments ACTIVATED CLOTTING TIME 351 sec : 74 -137 seconds, (BEAKER) (test code = Baseli ne: TESTED AT 441) [address], [address]: Roll Weigher/Techni harsh ID = [id number] for CA RPIO, MICHAEL BASIC METABOLIC [id number] 06:57:00 Test Item Value Reference Range Interpretation Comments SODIUM (BEAKER) 138 meq/L 136-145 (test code = 381) POTASSIUM (BEAKER) 3.5 meq/L 3.5-5.1 (test code = 379) CHLORIDE (BEAKER) 108 meq/L 98-107 H (test code = 382) CO2 (BEAKER) (test 21 meq/L 22-29 L code = 355) BLOOD UREA NITROGEN 14 mg/dL 7-21 (BEAKER) (test code = 354) CREATININE (BEAKER) 0.78 mg/dL 0.57-1.25 (test code = 358) GLUCOSE RANDOM 85 mg/dL 70-105 (BEAKER) (test code = 652) CALCIUM (BEAKER) 8.6 mg/dL 8.4-10.2 (test code = 697) EGFR (BEAKER) (test 103 mL/min/1.73 ESTIM ATED GFR IS code = 1092) sq m NOT ACCURATE CREATININE CLEARANCE IN PREDICTING GLOMERULAR FILTRATION RATE . ESTIMATED GFR I S NOT APPLICABLE FOR DIALYSIS PATIEN TS. Roll Weigher ID - PIAYA LCBC W/PLT COUNT & AUTO [id number] 06:39:00 Test Item Value Reference Range Interpretation Comments WHITE BLOOD CELL COUNT (BEAKER) 10.1 K/ L 3.5-10.5 (test code = 775) RED BLOOD CELL COUNT (BEAKER) 4.50 M/ L 4.63-6.08 L (test code = 761) HEMOGLOBIN (BEAKER) (test code = 13.3 GM/DL 13.7-17.5 L 410) HEMATOCRIT (BEAKER) (test code = 39.9 % 40.1-51.0 L 411) MEAN CORPUSCULAR VOLUME (BEAKER) 88.7 fL 79.0-92.2 (test code = 753) MEAN CORPUSCULAR HEMOGLOBIN 29.6 pg 25.7-32.2 (BEAKER) (test code = 751) MEAN CORPUSCULAR HEMOGLOBIN CONC 33.3 GM/DL 32.3-36.5 (BEAKER) (test code = 752) RED CELL DISTRIBUTION WIDTH 13.0 % 11.6-14.4 (BEAKER) (test code = 412) PLATELET COUNT (BEAKER) (test 244 K/CU MM 150-450 code = 756) MEAN PLATELET VOLUME (BEAKER) 10.9 fL 9.4-12.4 (test code = 754) NUCLEATED RED BLOOD CELLS 0 /100 WBC 0-0 (BEAKER) (test code = 413) NEUTROPHILS RELATIVE PERCENT 67 % (BEAKER) (test code = 429) LYMPHOCYTES RELATIVE PERCENT 22 % (BEAKER) (test code = 430) MONOCYTES RELATIVE PERCENT 6 % (BEAKER) (test code = 431) EOSINOPHILS RELATIVE PERCENT 3 % (BEAKER) (test code = 432) BASOPHILS RELATIVE PERCENT 1 % (BEAKER) (test code = 437) NEUTROPHILS ABSOLUTE COUNT 6.75 K/ L 1.78-5.38 H (BEAKER) (test code = 670) LYMPHOCYTES ABSOLUTE COUNT 2.18 K/ L 1.32-3.57 (BEAKER) (test code = 414) MONOCYTES ABSOLUTE COUNT (BEAKER) 0.63 K/ L 0.30-0.82 (test code = 415) EOSINOPHILS ABSOLUTE COUNT 0.32 K/ L 0.04-0.54 (BEAKER) (test code = 416) BASOPHILS ABSOLUTE COUNT (BEAKER) 0.07 K/ L 0.01-0.08 (test code = 417) IMMATURE GRANULOCYTES-RELATIVE 2 % 0-1 H PERCENT (BEAKER) (test code = 2801) BASIC METABOLIC [id number] 06:56:00 Test Item Value Reference Range Interpretation Comments SODIUM (BEAKER) 140 meq/L 136-145 (test code = 381) POTASSIUM (BEAKER) 3.6 meq/L 3.5-5.1 (test code = 379) CHLORIDE (BEAKER) 108 meq/L 98-107 H (test code = 382) CO2 (BEAKER) (test 24 meq/L 22-29 code = 355) BLOOD UREA NITROGEN 12 mg/dL 7-21 (BEAKER) (test code = 354) CREATININE (BEAKER) 0.77 mg/dL 0.57-1.25 (test code = 358) GLUCOSE RANDOM 72 mg/dL 70-105 (BEAKER) (test code = 652) CALCIUM (BEAKER) 8.3 mg/dL 8.4-10.2 L (test code = 697) EGFR (BEAKER) (test 105 mL/min/1.73 ESTIM ATED GFR IS code = 1092) sq m NOT ACCURATE CREATININE CLEARANCE IN PREDICTING GLOMERULAR FILTRATION RATE . ESTIMATED GFR I S NOT APPLICABLE FOR DIALYSIS PATIEN TS. Roll Weigher ID - SELENE [id number] 06:56:00 Test Item Value Reference Range Interpretation Comments MAGNESIUM (BEAKER) (test code = 1.9 mg/dL 1.6-2.6 627) Roll Weigher ID - SELENE MCBC W/PLT COUNT & AUTO [id number] 06:22:00 Test Item Value Reference Range Interpretation Comments WHITE BLOOD CELL COUNT (BEAKER) 10.4 K/ L 3.5-10.5 (test code = 775) RED BLOOD CELL COUNT (BEAKER) 4.49 M/ L 4.63-6.08 L (test code = 761) HEMOGLOBIN (BEAKER) (test code = 13.3 GM/DL 13.7-17.5 L 410) HEMATOCRIT (BEAKER) (test code = 39.9 % 40.1-51.0 L 411) MEAN CORPUSCULAR VOLUME (BEAKER) 88.9 fL 79.0-92.2 (test code = 753) MEAN CORPUSCULAR HEMOGLOBIN 29.6 pg 25.7-32.2 (BEAKER) (test code = 751) MEAN CORPUSCULAR HEMOGLOBIN CONC 33.3 GM/DL 32.3-36.5 (BEAKER) (test code = 752) RED CELL DISTRIBUTION WIDTH 13.0 % 11.6-14.4 (BEAKER) (test code = 412) PLATELET COUNT (BEAKER) (test 239 K/CU MM 150-450 code = 756) MEAN PLATELET VOLUME (BEAKER) 10.7 fL 9.4-12.4 (test code = 754) NUCLEATED RED BLOOD CELLS 0 /100 WBC 0-0 (BEAKER) (test code = 413) NEUTROPHILS RELATIVE PERCENT 66 % (BEAKER) (test code = 429) LYMPHOCYTES RELATIVE PERCENT 23 % (BEAKER) (test code = 430) MONOCYTES RELATIVE PERCENT 6 % (BEAKER) (test code = 431) EOSINOPHILS RELATIVE PERCENT 3 % (BEAKER) (test code = 432) BASOPHILS RELATIVE PERCENT 1 % (BEAKER) (test code = 437) NEUTROPHILS ABSOLUTE COUNT 6.85 K/ L 1.78-5.38 H (BEAKER) (test code = 670) LYMPHOCYTES ABSOLUTE COUNT 2.36 K/ L 1.32-3.57 (BEAKER) (test code = 414) MONOCYTES ABSOLUTE COUNT (BEAKER) 0.65 K/ L 0.30-0.82 (test code = 415) EOSINOPHILS ABSOLUTE COUNT 0.32 K/ L 0.04-0.54 (BEAKER) (test code = 416) BASOPHILS ABSOLUTE COUNT (BEAKER) 0.07 K/ L 0.01-0.08 (test code = 417) IMMATURE GRANULOCYTES-RELATIVE 2 % 0-1 H PERCENT (BEAKER) (test code = 2801) CBC W/PLT COUNT & AUTO [id number] 05:14:00 Test Item Value Reference Range Interpretation Comments WHITE BLOOD CELL COUNT (BEAKER) 10.5 K/ L 3.5-10.5 (test code = 775) RED BLOOD CELL COUNT (BEAKER) 4.38 M/ L 4.63-6.08 L (test code = 761) HEMOGLOBIN (BEAKER) (test code = 13.3 GM/DL 13.7-17.5 L 410) HEMATOCRIT (BEAKER) (test code = 39.4 % 40.1-51.0 L 411) MEAN CORPUSCULAR VOLUME (BEAKER) 90.0 fL 79.0-92.2 (test code = 753) MEAN CORPUSCULAR HEMOGLOBIN 30.4 pg 25.7-32.2 (BEAKER) (test code = 751) MEAN CORPUSCULAR HEMOGLOBIN CONC 33.8 GM/DL 32.3-36.5 (BEAKER) (test code = 752) RED CELL DISTRIBUTION WIDTH 13.1 % 11.6-14.4 (BEAKER) (test code = 412) PLATELET COUNT (BEAKER) (test 239 K/CU MM 150-450 code = 756) MEAN PLATELET VOLUME (BEAKER) 10.9 fL 9.4-12.4 (test code = 754) NUCLEATED RED BLOOD CELLS 0 /100 WBC 0-0 (BEAKER) (test code = 413) NEUTROPHILS RELATIVE PERCENT 73 % (BEAKER) (test code = 429) LYMPHOCYTES RELATIVE PERCENT 19 % (BEAKER) (test code = 430) MONOCYTES RELATIVE PERCENT 5 % (BEAKER) (test code = 431) EOSINOPHILS RELATIVE PERCENT 2 % (BEAKER) (test code = 432) BASOPHILS RELATIVE PERCENT 1 % (BEAKER) (test code = 437) NEUTROPHILS ABSOLUTE COUNT 7.61 K/ L 1.78-5.38 H (BEAKER) (test code = 670) LYMPHOCYTES ABSOLUTE COUNT 1.95 K/ L 1.32-3.57 (BEAKER) (test code = 414) MONOCYTES ABSOLUTE COUNT (BEAKER) 0.53 K/ L 0.30-0.82 (test code = 415) EOSINOPHILS ABSOLUTE COUNT 0.23 K/ L 0.04-0.54 (BEAKER) (test code = 416) BASOPHILS ABSOLUTE COUNT (BEAKER) 0.05 K/ L 0.01-0.08 (test code = 417) IMMATURE GRANULOCYTES-RELATIVE 1 % 0-1 PERCENT (BEAKER) (test code = 2801) BASIC METABOLIC [id number] 05:07:00 Test Item Value Reference Range Interpretation Comments SODIUM (BEAKER) 139 meq/L 136-145 (test code = 381) POTASSIUM (BEAKER) 4.0 meq/L 3.5-5.1 (test code = 379) CHLORIDE (BEAKER) 110 meq/L 98-107 H (test code = 382) CO2 (BEAKER) (test 22 meq/L 22-29 code = 355) BLOOD UREA NITROGEN 11 mg/dL 7-21 (BEAKER) (test code = 354) CREATININE (BEAKER) 0.75 mg/dL 0.57-1.25 (test code = 358) GLUCOSE RANDOM 80 mg/dL 70-105 (BEAKER) (test code = 652) CALCIUM (BEAKER) 8.1 mg/dL 8.4-10.2 L (test code = 697) EGFR (BEAKER) (test 108 mL/min/1.73 ESTIM ATED GFR IS code = 1092) sq m NOT ACCURATE CREATININE CLEARANCE IN PREDICTING GLOMERULAR FILTRATION RATE . ESTIMATED GFR I S NOT APPLICABLE FOR DIALYSIS PATIEN TS. Roll Weigher ID - SELENE [id number] 05:07:00 Test Item Value Reference Range Interpretation Comments MAGNESIUM (BEAKER) (test code = 1.9 mg/dL 1.6-2.6 627) Roll Weigher ID - SELENE MLIPID [id number] 15:53:00 Test Item Value Reference Range Interpretation Comments TRIGLYCERIDES (BEAKER) 109 mg/dL Speci men slightly (test code = 540) hemolyzed CHOLESTEROL (BEAKER) 167 mg/dL Specime n slightly (test code = 631) hemolyzed HDL CHOLESTEROL (BEAKER) 34 mg/dL (test code = 976) LDL CHOLESTEROL 111 mg/dL CALCULATED (BEAKER) (test code = 633) Triglyceride Reference Range: Low Risk <150 Borderline 150-199 High Risk 200-499 Very High Risk >=500Cholesterol Reference Range: Low Risk <200 Borderline 200-239 High Risk >240HDL Cholesterol Reference Range: Low Risk >=60 High Risk <40LDL Cholesterol Reference Range: Optimal <100 Near Optimal 100-129 Borderline 130-159 High 160-189 Very High >=190 Roll Weigher ID - [id number] 14:44:00 Test Item Value Reference Range Interpretation Comments ACTIVATED CLOTTING TIME 268 sec : 74 -137 seconds, (BEAKER) (test code = Baseli ne: TESTED AT 441) [address], [facility] 30: Roll Weigher/Techni harsh ID = [id number] for SA LINAS, OLIVE [id number] 14:26:00 Test Item Value Reference Range Interpretation Comments ACTIVATED CLOTTING TIME 224 sec : 74 -137 seconds, (BEAKER) (test code = Baseli ne: TESTED AT 441) [address], [address]: Roll Weigher/Techni harsh ID = [id number] for SA LINAS, OLIVE [id number] 14:13:00 Test Item Value Reference Range Interpretation Comments ACTIVATED CLOTTING TIME 202 sec : 74 -137 seconds, (BEAKER) (test code = Baseli ne: TESTED AT 441) [address], [facility] 30: Roll Weigher/Techni harsh ID = [id number] for SA LINAS, OLIVE [id number] 13:24:00 Test Item Value Reference Range Interpretation Comments ACTIVATED CLOTTING TIME 257 sec : 74 -137 seconds, (BEAKER) (test code = Baseli ne: TESTED AT 441) [address], [facility] 30: Roll Weigher/Techni harsh ID = [id number] for SA LINAS, OLIVE SARS-COV2/RT-PCR ([facility])2020-05-13 12:04:00 Test Item Value Reference Range Interpretation Comments SARS-COV2/RT-PCR (test code Positive Not Detected, Negative, AA = [id number]) See external report for linked test SARS-COV-[address] [facility] (test code = 2953244) Results are for the detection of SARS-CoV-2 RNA. The SARS-CoV-2 RNA is generally detectable in nasopharyngeal swab specimens during the acute phase of infection. Positive results are indicative of active infection with SARS-CoV-2; clinical correlation with patient history and other diagnostic information is necessary to determine patient infection status. Positive results do not rule out bacterial infection or co-infection with other viruses. The agent detected may not be the definite cause of disease. The limit of detection for this assay is 250 copies/mL.This SARS CoV-2 test is a rapid, yxnr-fjwvCW-PXE test intended for the qualitative detection of nucleic acid from SARS-CoV-2 in a nasopharyngeal swab specimen collected from individuals suspected of COVID-19 by their healthcare provider.This test has not been Food and Drug Administration (FDA) cleared or approved and has been authorized by FDA under an Emergency Use Authorization (EUA). This EUA will be effective until the declaration that ci rcumstances exist justifying the authorization of the emergency use of in vitro diagnostic tests fordetection and/or diagnosis of COVID-19 is terminated under Section 564(b)(2) of the Act or the EUA is revoked under Section 564(g) of the Act.Fact Sheet for Healthcare Providers:https://www.[employer]/ Documents/Xpert%20Xpress%20SARS%20CoV-2/Fact%20Sheets/302-3802%41RGUM-HHT-2%20HE ALTHCARE%20PROVIDERS%20FACT%20SHEET.pdfFact Sheet for Healthcare Patients:https://www.GotVoice/Documents/Xpert%20Xpress %20SARS%20CoV-2/Fact%20Sheets/3023801%06TEGS-ARG-5%20PATIENT%20FACT%20SHEET.pdf Performing Laboratory:[facility], [place] [id number] [id number] 09:18:00 Test Item Value Reference Range Interpretation Comments TROPONIN I (BEAKER) (test code = 11.62 ng/mL 0.00-0.03 [facility]) Troponin I (TnI) levels must be interpreted in the context of the presenting symptoms and the clinical findings. Elevated TnI levels indicate myocardial damage, but are not specific for ischemic heart disease. Elevated TnI levels are seen in patients with other cardiac conditions (including myocarditis and congestive heart failure), and slight TnI elevations occur in patients with other conditions, including sepsis, renal failure, acidosis, acute neurological disease, and persistent tachyarrhythmia.Roll Weigher ID - [id number] 08:52:00 Test Item Value Reference Range Interpretation Comments PARTIAL THROMBOPLASTIN TIME 36.4 seconds 22.5-36.0 H (BEAKER) (test code = 760) 6 hours after starting heparin infusion and as indicated per sliding scale TROPONIN [id number] 05:26:00 Test Item Value Reference Range Interpretation Comments TROPONIN I (BEAKER) (test code = 17.47 ng/mL 0.00-0.03 HH 397) Troponin I (TnI) levels must be interpreted in the context of the presenting symptoms and the clinical findings. Elevated TnI levels indicate myocardial damage, but are not specific for ischemic heart disease. Elevated TnI levels are seen in patients with other cardiac conditions (including myocarditis and congestive heart failure), and slight TnI elevations occur in patients with other conditions, including sepsis, renal failure, acidosis, acute neurological disease, and persistent tachyarrhythmia.Roll Weigher ID Presley SHAIKH LBASIC METABOLIC [id number] 04:54:00 Test Item Value Reference Range Interpretation Comments SODIUM (BEAKER) 137 meq/L 136-145 (test code = 381) POTASSIUM (BEAKER) 3.7 meq/L 3.5-5.1 (test code = 379) CHLORIDE (BEAKER) 107 meq/L 98-107 (test code = 382) CO2 (BEAKER) (test 25 meq/L 22-29 code = 355) BLOOD UREA NITROGEN 11 mg/dL 7-21 (BEAKER) (test code = 354) CREATININE (BEAKER) 0.78 mg/dL 0.57-1.25 (test code = 358) GLUCOSE RANDOM 87 mg/dL 70-105 (BEAKER) (test code = 652) CALCIUM (BEAKER) 8.8 mg/dL 8.4-10.2 (test code = 697) EGFR (BEAKER) (test 103 mL/min/1.73 ESTIM ATED GFR IS code = 1092) sq m NOT ACCURATE CREATININE CLEARANCE IN PREDICTING GLOMERULAR FILTRATION RATE . ESTIMATED GFR I S NOT APPLICABLE FOR DIALYSIS PATIEN TS. Roll Weigher ID - HAWA [id number] 04:54:00 Test Item Value Reference Range Interpretation Comments MAGNESIUM (BEAKER) (test code = 2.0 mg/dL 1.6-2.6 627) Roll Weigher ID - HAWA LCBC W/PLT COUNT & AUTO [id number] 04:37:00 Test Item Value Reference Range Interpretation Comments WHITE BLOOD CELL COUNT (BEAKER) 11.4 K/ L 3.5-10.5 H (test code = 775) RED BLOOD CELL COUNT (BEAKER) 4.40 M/ L 4.63-6.08 L (test code = 761) HEMOGLOBIN (BEAKER) (test code = 13.0 GM/DL 13.7-17.5 L 410) HEMATOCRIT (BEAKER) (test code = 39.3 % 40.1-51.0 L 411) MEAN CORPUSCULAR VOLUME (BEAKER) 89.3 fL 79.0-92.2 (test code = 753) MEAN CORPUSCULAR HEMOGLOBIN 29.5 pg 25.7-32.2 (BEAKER) (test code = 751) MEAN CORPUSCULAR HEMOGLOBIN CONC 33.1 GM/DL 32.3-36.5 (BEAKER) (test code = 752) RED CELL DISTRIBUTION WIDTH 13.1 % 11.6-14.4 (BEAKER) (test code = 412) PLATELET COUNT (BEAKER) (test 257 K/CU MM 150-450 code = 756) MEAN PLATELET VOLUME (BEAKER) 10.6 fL 9.4-12.4 (test code = 754) NUCLEATED RED BLOOD CELLS 0 /100 WBC 0-0 (BEAKER) (test code = 413) NEUTROPHILS RELATIVE PERCENT 70 % (BEAKER) (test code = 429) LYMPHOCYTES RELATIVE PERCENT 22 % (BEAKER) (test code = 430) MONOCYTES RELATIVE PERCENT 5 % (BEAKER) (test code = 431) EOSINOPHILS RELATIVE PERCENT 2 % (BEAKER) (test code = 432) BASOPHILS RELATIVE PERCENT 1 % (BEAKER) (test code = 437) NEUTROPHILS ABSOLUTE COUNT 7.94 K/ L 1.78-5.38 H (BEAKER) (test code = 670) LYMPHOCYTES ABSOLUTE COUNT 2.54 K/ L 1.32-3.57 (BEAKER) (test code = 414) MONOCYTES ABSOLUTE COUNT (BEAKER) 0.53 K/ L 0.30-0.82 (test code = 415) EOSINOPHILS ABSOLUTE COUNT 0.18 K/ L 0.04-0.54 (BEAKER) (test code = 416) BASOPHILS ABSOLUTE COUNT (BEAKER) 0.09 K/ L 0.01-0.08 H (test code = 417) IMMATURE GRANULOCYTES-RELATIVE 1 % 0-1 PERCENT (BEAKER) (test code = 2801) TROPONIN [id number] 00:13:00 Test Item Value Reference Range Interpretation Comments TROPONIN I (BEAKER) (test code = 5.50 ng/mL 0.00-0.03 397) Troponin I (TnI) levels must be interpreted in the context of the presenting symptoms and the clinical findings. Elevated TnI levels indicate myocardial damage, but are not specific for ischemic heart disease. Elevated TnI levels are seen in patients with other cardiac conditions (including myocarditis and congestive heart failure), and slight TnI elevations occur in patients with other conditions, including sepsis, renal failure, acidosis, acute neurological disease, and persistent tachyarrhythmia.Roll Weigher ID - PIAYA LTSH/FREE T4 IF [id number] 22:51:00 Test Item Value Reference Range Interpretation Comments THYROID STIMULATING HORMONE 0.871 uIU/mL 0.350-4.940 (AKER) (test code = 772) Roll Weigher ID - DBHEMOGLOBIN [id number] 22:43:00 Test Item Value Reference Range Interpretation Comments HEMOGLOBIN A1C (BEAKER) (test code = 4.6 % 4.3-6.1 368) TROPONIN [id number] 22:40:00 Test Item Value Reference Range Interpretation Comments TROPONIN I (BEAKER) (test code = 1.98 ng/mL 0.00-0.03 397) Troponin I (TnI) levels must be interpreted in the context of the presenting symptoms and the clinical findings. Elevated TnI levels indicate myocardial damage, but are not specific for ischemic heart disease. Elevated TnI levels are seen in patients with other cardiac conditions (including myocarditis and congestive heart failure), and slight TnI elevations occur in patients with other conditions, including sepsis, renal failure, acidosis, acute neurological disease, and persistent tachyarrhythmia.Roll Weigher ID - [id number] 22:36:00 Test Item Value Reference Range Interpretation Comments PARTIAL THROMBOPLASTIN TIME 36.1 seconds 22.5-36.0 H (BEAKER) (test code = 760) [id number] 22:36:00 Test Item Value Reference Range Interpretation Comments PROTIME (BEAKER) (test code = 14.1 seconds 11.9-14.2 759) INR (BEAKER) (test code = 370) 1.12 <=5.90 PARTIAL THROMBOPLASTIN TIME 36.1 seconds 22.5-36.0 H (BEAKER) (test code = 760) Effective 12/27/2018: PT Reference Range ChangeNew: 11.9-14.2 Previous: 11.7- 14.7RECOMMENDED COUMADIN/WARFARIN INR THERAPY RANGESSTANDARD DOSE: 2.0-3.0 Includes: PROPHYLAXIS for venous thrombosis, systemic embolization; TREATMENT for venous thrombosis and/or pulmonary embolus.HIGH RISK: Target INR is2.5-3.5 for patients wiht mechanical heart valves.PROTHROMBIN [id number] 22:35:00 Test Item Value Reference Range Interpretation Comments PROTIME (BEAKER) (test code = 14.1 seconds 11.9-14.2 759) INR (BEAKER) (test code = 370) 1.12 <=5.90 Effective 12/27/2018: PT Reference Range ChangeNew: 11.9-14.2 Previous: 11.7- 14.7RECOMMENDED COUMADIN/WARFARIN INR THERAPY RANGESSTANDARD DOSE: 2.0-3.0 Includes: PROPHYLAXIS for venous thrombosis, systemic embolization; TREATMENT for venous thrombosis and/or pulmonary embolus.HIGH RISK: Target INR is2.5-3.5 for patients wiht mechanical heart valves.B-TYPE NATRIURETIC FACTOR (BNP) 2020-05-12 22:34:00 Test Item Value Reference Range Interpretation Comments B-TYPE NATRIURETIC PEPTIDE (BEAKER) 39 pg/mL 0-100 (test code = 700) Roll Weigher ID - [id number] 22:30:00 Test Item Value Reference Range Interpretation Comments MAGNESIUM (BEAKER) 1.9 mg/dL 1.6-2.6 Specimen slightly (test code = 627) hemolyzed Roll Weigher ID - [id number] 22:30:00 Test Item Value Reference Range Interpretation Comments PHOSPHORUS (BEAKER) 2.6 mg/dL 2.3-4.7 Specimen slightly (test code = 604) hemolyzed Roll Weigher ID - DBCOMPREHENSIVE METABOLIC [id number] 22:30:00 Test Item Value Reference Range Interpretation Comments TOTAL PROTEIN 7.2 gm/dL 6.0-8.3 Specimen sligh tly (BEAKER) (test code = hemoly zed 770) ALBUMIN (BEAKER) 4.4 g/dL 3.5-5.0 Specimen sl ightly (test code = 1145) hemolyzed ALKALINE PHOSPHATASE 48 U/L 40-150 (BEAKER) (test code = 346) BILIRUBIN TOTAL 0.5 mg/dL 0.2-1.2 Specimen sli ghtly (BEAKER) (test code = hemoly zed 377) SODIUM (BEAKER) (test 138 meq/L 136-145 code = 381) POTASSIUM (BEAKER) 3.9 meq/L 3.5-5.1 Specimen slightly (test code = 379) hemolyzed CHLORIDE (BEAKER) 109 meq/L 98-107 H (test code = 382) CO2 (BEAKER) (test 20 meq/L 22-29 L code = 355) BLOOD UREA NITROGEN 12 mg/dL 7-21 (BEAKER) (test code = 354) CREATININE (BEAKER) 0.83 mg/dL 0.57-1.25 Specimen slightly (test code = 358) hemolyzed GLUCOSE RANDOM 95 mg/dL 70-105 (BEAKER) (test code = 652) CALCIUM (BEAKER) 8.9 mg/dL 8.4-10.2 (test code = 697) AST (SGOT) (BEAKER) 32 U/L 5-34 Specimen slightly (test code = 353) hemolyzed ALT (SGPT) (BEAKER) 22 U/L 6-55 Specimen slightly (test code = 347) hemolyzed EGFR (BEAKER) (test 96 mL/min/1.73 ESTIMA AYALA GFR IS code = 1092) sq m NOT ACCURATE CREATININE CLEARANCE IN PREDICTING GLOMERULAR FILTRATION RATE . ESTIMATED GFR I S NOT APPLICABLE FOR DIALYSIS PATIEN TS. Roll Weigher ID - DBLIPID [id number] 22:30:00 Test Item Value Reference Range Interpretation Comments TRIGLYCERIDES (BEAKER) 74 mg/dL Speci men slightly (test code = 540) hemolyzed CHOLESTEROL (BEAKER) 187 mg/dL Specime n slightly (test code = 631) hemolyzed HDL CHOLESTEROL (BEAKER) 39 mg/dL (test code = 976) LDL CHOLESTEROL 133 mg/dL CALCULATED (BEAKER) (test code = 633) Triglyceride Reference Range: Low Risk <150 Borderline 150-199 High Risk 200-499 Very High Risk >=500Cholesterol Reference Range: Low Risk <200 Borderline 200-239 High Risk >240HDL Cholesterol Reference Range: Low Risk >=60 High Risk <40LDL Cholesterol Reference Range: Optimal <100 Near Optimal 100-129 Borderline 130-159 High 160-189 Very High >=190 Roll Weigher ID - DBCBC W/PLT COUNT & AUTO [id number] 22:26:00 Test Item Value Reference Range Interpretation Comments WHITE BLOOD CELL COUNT (BEAKER) 15.9 K/ L 3.5-10.5 H (test code = 775) RED BLOOD CELL COUNT (BEAKER) 4.62 M/ L 4.63-6.08 L (test code = 761) HEMOGLOBIN (BEAKER) (test code = 13.7 GM/DL 13.7-17.5 410) HEMATOCRIT (BEAKER) (test code = 42.6 % 40.1-51.0 411) MEAN CORPUSCULAR VOLUME (BEAKER) 92.2 fL 79.0-92.2 (test code = 753) MEAN CORPUSCULAR HEMOGLOBIN 29.7 pg 25.7-32.2 (BEAKER) (test code = 751) MEAN CORPUSCULAR HEMOGLOBIN CONC 32.2 GM/DL 32.3-36.5 L (BEAKER) (test code = 752) RED CELL DISTRIBUTION WIDTH 13.2 % 11.6-14.4 (BEAKER) (test code = 412) PLATELET COUNT (BEAKER) (test 257 K/CU MM 150-450 code = 756) MEAN PLATELET VOLUME (BEAKER) 10.6 fL 9.4-12.4 (test code = 754) NUCLEATED RED BLOOD CELLS 0 /100 WBC 0-0 (BEAKER) (test code = 413) NEUTROPHILS RELATIVE PERCENT 89 % (BEAKER) (test code = 429) LYMPHOCYTES RELATIVE PERCENT 7 % (BEAKER) (test code = 430) MONOCYTES RELATIVE PERCENT 3 % (BEAKER) (test code = 431) EOSINOPHILS RELATIVE PERCENT 0 % (BEAKER) (test code = 432) BASOPHILS RELATIVE PERCENT 0 % (BEAKER) (test code = 437) NEUTROPHILS ABSOLUTE COUNT 14.14 K/ L 1.78-5.38 H (BEAKER) (test code = 670) LYMPHOCYTES ABSOLUTE COUNT 1.13 K/ L 1.32-3.57 L (BEAKER) (test code = 414) MONOCYTES ABSOLUTE COUNT (BEAKER) 0.41 K/ L 0.30-0.82 (test code = 415) EOSINOPHILS ABSOLUTE COUNT 0.03 K/ L 0.04-0.54 L (BEAKER) (test code = 416) BASOPHILS ABSOLUTE COUNT (BEAKER) 0.06 K/ L 0.01-0.08 (test code = 417) IMMATURE GRANULOCYTES-RELATIVE 1 % 0-1 PERCENT (BEAKER) (test code = 2801) RAD, CHEST, 1 VIEW, NON [id number] 22:08:00Reason for exam:- >dyspneaShould this be performed at the bedside?->YesFINAL REPORT Chest one view. Clinical history: dyspnea Comparison: None. Tech nique: A single frontal view of the chest was obtained. Findings: The patient overlies and partially obscures the right upper lobe. The heart is normal in size. The aorta is uncoiled. The lungs are grossly clear. There is no pneumothorax. There is a plate and screw device overlying the right clavicle. Impression: Grossly clear lungs. Signed: Seth Schrader MDReport Verified Date/Time: 05/12/2020 22:08:42
--- NOTE | 2021-06-13 20:40 | CON ---
Date of Consultation: 06/09/2021 Reason For Consultation: Cardiac clearance. History Of Present Illness: Mr. Mccormick is 55, has a history of hypertension, depression, coronary art tex disease, asthma, came in with abdominal pain. Cholecystectomy is planned. No cardiac symptoms r eported. Allergies: HE HAS ALLERGIES TO ALEVE. Review of Systems: Negative. Social History: Negative. Family History: Negative. Past Medical History: As stated above. Medications: At home include Plavix, Bystolic, Lipitor. He also takes Pletal for peripheral arteria l disease. Physical Examination: Vital Signs: Stable, afebrile. HEENT: Negative. Neck: Supple with no bruit. Chest: Clear to auscultation and percussion. Cardiac: Revealed a regular rhythm and rate. No murmurs, gallops, or rubs. Abdomen: Benign. Extremities: Revealed no clubbing, cyanosis, or edema. Diagnostic Data: Revealed a normal EKG. Impression And Plan: The patient with history of coronary artery disease, status post intervention, on Plavix, has been more than a year ago. He can certainly stop the Plavix for the surgery. He has no cardiac symptoms. Normal EKG. Normal physical examination from a cardiac standpoint. I think he is cleared to undergo his gallbladder surgery whenever it is okay with Dr. Munguia. I will be avail able for questions if the need arises. CHIDI/HOMAR Voice ID: [id number] Report ID: [id number]
--- NOTE | 2021-06-15 07:47 | RAD REPORT ---
EXAM DESCRIPTION: RAD - Cholangiogram Oper-Xray Or - 06/15/2021 7:30 am CLINICAL HISTORY: DEACON WITH IOC COMPARISON: [facility] Protocol dated 06/09/2021 FINDINGS/IMPRESSION: Four intraoperative fluoroscopic images were submitted. Total fluoro time of 10 seconds. An intraoperative cholangiogram was performed. No biliary ductal dilatation is appreciated. Filling defect in the distal common bile duct likely secondary to gas.
== END 2021-06-10 10:58 | disposition home or self-care (01) ==
LOC: ER 05:53 → ERHOLD 10:30 → 2ND 12:50
PROVIDERS: ADMIT Hospitalist; ATTEND Hospitalist
PROC: BF00YZZ Plain Radiography of Bile Ducts using Other Contrast (ICD-10-PCS; 2021-06-09)
PROC: 0FB14ZX Excision of Right Lobe Liver, Percutaneous Endoscopic Approach, Diagnostic (ICD-10-PCS; 2021-06-09)
PROC: 0FT44ZZ Resection of Gallbladder, Percutaneous Endoscopic Approach (ICD-10-PCS; principal; 2021-06-09 15:30)
DX: K80.12 Calculus of gallbladder with acute and chronic cholecystitis without obstruction (principal); I25.10 Atherosclerotic heart disease of native coronary artery without angina pectoris; I10 Essential (primary) hypertension; F41.8 Other specified anxiety disorders; J45.909 Unspecified asthma, uncomplicated; Z95.5 Presence of coronary angioplasty implant and graft; Z20.822 Contact with and (suspected) exposure to COVID-19
CPT/HCPCS: 96365; 96361; 93005; 85025 ×2; 80048; 36415 ×2; 88313; 80076; 88304; 88307; 81003; 83690; 80053; 76377; 74176; 74300; 76705; 94760; 96375; 99284; 47563; 47379; U0003; J2704; J0330; J2543; J2250; J3010; J2710; J0694; G0378 ×4; J7120; J7030 ×2; J2405 ×2; 88305

== ENCOUNTER 2022-08-19 09:45 | Emergency (ER) | payer BC ==
--- OUTSIDE RECORDS SUMMARY | 2022-08-19 09:49 | XMS REPORT | Continuity of Care Document ---
:1965 Author Organization [facility] t Address [address] [place] [address] Care Team Providers Name Role Phone Dex Bradley Primary Care Physician CHASIDY WEBB Attending Clinician Unavailable Amilcar MOLINA, Lucrecia Trent Attending Clinician Unavailable Only, Ang Db Test Attending Clinician Unavailable Unknown, Attending Attending Clinician Unavailable Raju_P Attending Clinician Unavailable CHASIDY WEBB Admitting Clinician Unavailable Nataliia_Alvaor Admitting Clinician Unavailable Payers Payer Name Policy Type Policy Number Effective Date Expiration Date S nicki [facility] OS [id number] 2017 00:00:00 POS/PPO/EPO Problems Condition Condition Condition Status Onset Resolution Last Treating Co mments Source Name Details Category Date Date Treatment Clinician Date STEMI (ST STEMI (ST Disease Active 2019-[address] [facility] elevation elevation 0-14 [facility] myocardial myocardial 00:00: Me dical infarction infarction 00 Ce nter ) ) Acute GA Acute GA Disease Active 2019-[facility] [address] Trauma Trauma Disease Active 2018- Univers 4-05 ity of 00:00: [place] 00 Medical Branch Obesity Obesity Disease Active Univers (BMI (BMI 4-05 ity of 30-39.9) 30-39.9) 00:00: [address] Branch Allergies, Adverse Reactions, Alerts Allergy Allergy Status Severity Reaction(s) Onset Inactive Treating Comm ents Source Name Type Date Date Clinician NAPROXEN Allergy Active 2019-[address] [facility] [address] 0-12 [facility] 00:[facility]: Medical 00 Center Naproxen Propensi Active 2019-[address] [facility] ty to 0-12 [facility] adverse 00:00: Medical reaction 00 Center s Social History Social Habit Start Date Stop Date Quantity Comments Source Exposure to Yes [facility]-CoV-2 [facility] (event) Branch Alcohol intake 2020-05-19 2020-05-19 Ex-drinker [facility] 00:00:00 00:00:00 (finding) [facility] Tobacco use and 2020-05-12 2020-05-[address] [facility] [address] [facility] exposure 00:00:00 00:00:00 [facility] Sex Assigned At [address] [facility] 00:00:00 00:[facility]:00 [facility] Center Smoking Status Start Date Stop Date Source Never smoker [facility] Medications Ordered Filled Start Stop Current Ordering Indication Dosage Frequency Signature Comments Components Source Medication Medication Date Date Medication? Clinician (SIG) Name Name lithium 300 2019-08 Yes 300mg Take [address] MG capsule 0-18 mg by [facility] 18:11: mouth Medical 52 daily with Center breakfast. ticagrelor 2019-08 Yes 90mg Q.5D Take 1 [facility] ([facility]IL[facility]) 0-18 tablet (90 [facility] 90 mg Tab 00:00: mg total) Med ical tablet 00 by mouth 2 Center (two) times daily. lithium 150 2019-08 Yes 150mg [address] MG capsule 0-09 daily with Darian es 00:00: dinner . Medical 00 [place] OXcarbazepi Yes TAKE 1 & [address] [facility] ne 9-30 2 (ONE & [facility] (TRILEPTAL) 00:00: ONE HALF) M edical 600 MG 00 TABLETS BY Center tablet MOUTH ONCE DAILY AT BEDTIME fLUoxetine Yes 20mg Q.5D Take [address] (PROzac) 20 9-30 by mouth 2 [facility]le kes MG capsule 00:00: (two) Medica l 00 times Center daily. albuterol Yes 2{puff} Inhale [address] HFA 8-25 puffs by [facility] (VENTOLIN 00:00: mouth via Med ical HFA) 90 00 inhaler Center mcg/actuati every 4 on inhaler (four) hours as needed. Symbicort Yes [facility] 160-4.5 8-10 [facility] mcg/actuati 00:00: Medica l on inhaler 00 Center cyclobenzap Yes [id number] 5mg Take 1 Univers rine 5 mg 4-05 tablet by ity o f tablet 00:00: mouth 3 (three) Medical times Branch daily. cyclobenzap Yes [id number] 5mg Take 1 Univers rine 5 mg 4-05 tablet by ity o f tablet 00:00: mouth 3 [place] (three) Medical times Branch daily. Vital Signs [...] Procedures This patient has no known procedures. Plan of Care Planned Activity Planned Date Details Comments Source Future Scheduled 2023-05-13 Lipid panel (procedure) [facility] Test 00:00:00 [code = 45439290] Medical Ce nter Future Scheduled 2022-08-[address] [facility] Test 00:00:00 (12+) [code = Medical Center DEPRESSION SCREENING (12+)] Future Scheduled 2022-04-01 INFLUENZA VACCINE (#1) [facility] 00:00:00 [code = INFLUENZA Medical Ce nter VACCINE (#1)] Future Scheduled 2021-05-[address] [facility] Test 00:00:00 Counseling and Medical Cente r Screening (12+) [code = Tobacco Cessation Counseling and Screening (12+)] Future Scheduled 2014 SHINGLES VACCINES ([address] [facility] Test 00:00:00 2) [code = SHINGLES Medical Center VACCINES (1 of 2)] Future Scheduled 1983 DTAP/TDAP/TD VACCINES [facility] 00:00:00 (1 - Tdap) [code = Medical C enter DTAP/TDAP/TD VACCINES (1 - Tdap)] Future Scheduled 1982 HEPATITIS C SCREENING [facility] 00:00:00 [code = HEPATITIS C Medical Center SCREENING] Future Scheduled 1965-01-01 COVID-19 VACCINE (#1) [facility] 00:00:00 [code = COVID-[address] VACCINE (#1)] Future Scheduled 1964 Screening for malignant [facility] Test 00:00:00 neoplasm of colon Medical Ce nter (procedure) [code = 628541776] Future Scheduled 1964 Screening for malignant [facility] Test 00:00:00 neoplasm of colon Medical Ce nter (procedure) [code = 690199713] Future Scheduled 1964 Screening for malignant [facility] Test 00:00:00 neoplasm of colon Medical Ce nter (procedure) [code = 528967375] Future Scheduled 1964 Screening for malignant [facility] Test 00:00:00 neoplasm of colon Medical Ce nter (procedure) [code = 630868870] Future Scheduled 1965 Sigmoidoscopy [code = [facility] 00:[facility]:00 Sigmoidoscopy] Medical Cente r Future Scheduled 1964 CT Colonography (combo) [facility] Test 00:00:00 [code = CT Colonography [facility] (combo)] Encounters Start End Encounter Admission Attending Care Care Encounter Source Date/Time Date/Time Type Type Clinicians Facility Department ID 2020-05-12 Inpatient ER JED WEBB Cardiology [id number] [facility] 20:26:00 CHASIDY 2021-04-11 2021-04-11 Telephone EILEEN Fitzgerald [id number] Univers 00:00:00 00:00:00 Lucrecia CHAPMAN [id number] i ty of [facility] [id number] Chu as [id number] [place] [address] Branch 2021-04-09 2021-04-09 Laboratory Only, Ang Db Test [facility] 1.2.8 40.114 [id number] Univers 14:21:41 14:31:41 Only Unknown, Attending Health [id number] ity [facility] [id number] Chu as Real?Blea [phone] [place] dical [facility] [address] Branch Medical Office Building 2019-10-24 2019-10-24 Outpatient Raju_P MMG MMG [id number] [place] 10:09:00 10:09:00 0325 [facility] Results Test Description Test Time Test Comments Results Result Comments Source POCT-ACT 2020-05-17 15:20:00 Test Item Value Reference Range Interpretation Comme nts ACTIVATED CLOTTING TIME (BEAKER) 197 sec : 74-137 seconds, Baseline: TESTED AT (test code = 441) [address], [address]: Supervisor International Reservations/Techni harsh ID = [id number] for SOFIA, MICHAEL [id number] 14:36:00 Test Item Value Reference Range Interpretation Comments ACTIVATED CLOTTING TIME 351 sec : 74 -137 seconds, (BEAKER) (test code = Baseli ne: TESTED AT 441) [place] [id number] [facility], [address]: Supervisor International Reservations/Techni harsh ID = [id number] for CA RPIO, MICHAEL BASIC METABOLIC [id number] 06:57:00 Test Item Value Reference Range Interpretation [...] S NOT APPLICABLE FOR DIALYSIS PATIEN TS. Supervisor International Reservations ID - PIAYA LCBC W/PLT COUNT & AUTO [id number] 06:39:00 Test Item Value Reference Range Interpretation [...] (BEAKER) (test code = 2801) BASIC METABOLIC [id number] 06:56:00 Test Item Value Reference Range Interpretation [...] S NOT APPLICABLE FOR DIALYSIS PATIEN TS. Supervisor International Reservations ID - SELENE [id number] 06:56:00 Test Item Value Reference Range Interpretation Comments MAGNESIUM (BEAKER) (test code = 1.9 mg/dL 1.6-2.6 627) Supervisor International Reservations ID - SELENE MCBC W/PLT COUNT & AUTO [id number] 06:22:00 Test Item Value Reference Range Interpretation [...] = 2801) CBC W/PLT COUNT & AUTO [id number] 05:14:00 Test Item Value Reference Range Interpretation [...] (BEAKER) (test code = 2801) BASIC METABOLIC [id number] 05:07:00 Test Item Value Reference Range Interpretation [...] S NOT APPLICABLE FOR DIALYSIS PATIEN TS. Supervisor International Reservations ID - SELENE [id number] 05:07:00 Test Item Value Reference Range Interpretation Comments MAGNESIUM (BEAKER) (test code = 1.9 mg/dL 1.6-2.6 627) Supervisor International Reservations ID - SELENE MLIPID [id number] 15:53:00 Test Item Value Reference Range Interpretation Comments TRIGLYCERIDES (BEAKER) 109 mg/dL Speci men slightly (test code = 540) hemolyzed CHOLESTEROL (BEAKER) 167 mg/dL Specime n slightly (test code = 631) hemolyzed HDL CHOLESTEROL (BEAKER) 34 mg/dL (test code = 976) LDL CHOLESTEROL 111 mg/dL CALCULATED (AKER) (test code = 633) Triglyceride Reference Range: Low Risk <150 Borderline 150-199 High Risk 200- 499 Very High Risk >=500Cholesterol Reference Range: Low Risk <200 Borderline 200-239 High Risk >240HDL Cholesterol Reference Range: Low Risk >=60 High Risk <40LDL Cholesterol Reference Range: Optimal <100 Near Optimal 100-129 Borderline 130-159 High 160-189 Very High >=190 Supervisor International Reservations ID - [id number] 14:44:00 Test Item Value Reference Range Interpretation Comments ACTIVATED CLOTTING TIME 268 sec : 74 -137 seconds, (BEAKER) (test code = Baseli ne: TESTED AT 441) [address], [facility] 30: Supervisor International Reservations/Techni harsh ID = [id number] for SA LINAS, OLIVE [id number] 14:26:00 Test Item Value Reference Range Interpretation Comments ACTIVATED CLOTTING TIME 224 sec : 74 -137 seconds, (BEAKER) (test code = Baseli ne: TESTED AT 441) [place] [address]: Supervisor International Reservations/Techni harsh ID = [id number] for SA LINAS, OLIVE [id number] 14:13:00 Test Item Value Reference Range Interpretation Comments ACTIVATED CLOTTING TIME 202 sec : 74 -137 seconds, (BEAKER) (test code = Baseli ne: TESTED AT 441) [address], [facility] 30: Supervisor International Reservations/Techni harsh ID = [id number] for SA LINAS, OLIVE [id number] 13:24:00 Test Item Value Reference Range Interpretation Comments ACTIVATED CLOTTING TIME 257 sec : 74 -137 seconds, (BEAKER) (test code = Baseli ne: TESTED AT 441) [place] [address]: Supervisor International Reservations/Techni harsh ID = [id number] for SA LINAS, OLIVE SARS-COV2/RT-PCR ([facility])2020-05-13 12:04:00 Test Item Value Reference Range Interpretation Comments SARS-COV2/RT-PCR (test code Positive Not Detected, Negative, AA = [id number]) See external report for linked test SARS-COV-[address] [facility] (test code = 5077121) Results are for the detection of SARS-CoV-2 [...] copies/mL.This SARS CoV-2 test is a rapid, dmbt-oupvQL-AUN test intended for the qualitative detection of [...] 564(g) of the Act.Fact Sheet for Healthcare Providers:https://www.[employer]Sling/ Documents/Xpert%20Xpress%20SARS%20CoV-2/Fact%20Sheets/302-2932%54TXQO-ABI-5%20HE ALTHCARE%20PROVIDERS%20FACT%20SHEET.pdfFact Sheet for Healthcare Patients:https://www.Quantapore.[employer]/Documents/Xpert%20Xpress %20SARS%20CoV-2/Fact%20Sheets/302-5451%02OEDH-OXV-5%20PATIENT%20FACT%20SHEET.pdf Performing Laboratory:[facility], [place] [id number] 09:18:00 Test Item Value Reference Range Interpretation Comments TROPONIN I (BEAKER) (test code = 11.62 ng/mL 0.00-0.03 397) Troponin I (TnI) levels [...] failure, acidosis, acute neurological disease, and persistent tachyarrhythmia.Supervisor International Reservations ID - [id number] 08:52:00 Test Item Value Reference Range Interpretation Comments PARTIAL THROMBOPLASTIN TIME 36.4 seconds 22.5-36.0 H (BEAKER) (test code = 760) 6 hours after starting heparin infusion and as indicated per sliding scale TROPONIN [id number] 05:26:00 Test Item Value Reference Range Interpretation Comments TROPONIN I (BEAKER) (test code = 17.47 ng/mL 0.00-0.03 397) Troponin I (TnI) levels [...] failure, acidosis, acute neurological disease, and persistent tachyarrhythmia.Supervisor International Reservations ID - PIAYA LBASIC METABOLIC [id number] 04:54:00 Test Item Value Reference Range Interpretation [...] S NOT APPLICABLE FOR DIALYSIS PATIEN TS. Supervisor International Reservations ID Presley SHAIKH [id number] 04:54:00 Test Item Value Reference Range Interpretation Comments MAGNESIUM (BEAKER) (test code = 2.0 mg/dL 1.6-2.6 627) Supervisor International Reservations ID - HAWA LCBC W/PLT COUNT & AUTO [id number] 04:37:00 Test Item Value Reference Range Interpretation [...] PERCENT (BEAKER) (test code = 2801) TROPONIN [id number] 00:13:00 Test Item Value Reference Range Interpretation [...] failure, acidosis, acute neurological disease, and persistent tachyarrhythmia.Supervisor International Reservations ID - PIAYA LTSH/FREE T4 IF [id number] 22:51:00 Test Item Value Reference Range Interpretation Comments THYROID STIMULATING HORMONE 0.871 uIU/mL 0.350-4.940 (BEAKER) (test code = 772) Supervisor International Reservations ID - DBHEMOGLOBIN [id number] 22:43:00 Test Item Value Reference Range Interpretation Comments HEMOGLOBIN A1C (BEAKER) (test code = 4.6 % 4.3-6.1 368) TROPONIN [id number] 22:40:00 Test Item Value Reference Range Interpretation [...] failure, acidosis, acute neurological disease, and persistent tachyarrhythmia.Supervisor International Reservations ID - [id number] 22:36:00 Test Item Value Reference Range Interpretation Comments PARTIAL THROMBOPLASTIN TIME 36.1 seconds 22.5-36.0 H (BEAKER) (test code = 760) [id number] 22:36:00 Test Item Value Reference Range Interpretation [...] thrombosis and/or pulmonary embolus.HIGH RISK: Target INR is 2.5-3.5 for patients wiht mechanical heart valves.PROTHROMBIN TIME/[id number] 22:35:00 Test Item Value Reference Range Interpretation Comments PROTIME (BEAKER) (test code = 14.1 seconds 11.9-14.2 759) INR (BEAKER) (test code = 370) 1.12 <=5.90 Effective 12/27/2018: PT Reference Range ChangeNew: 11.9-14.2 Previous: 11.7- 14.7RECOMMENDED COUMADIN/WARFARIN INR THERAPY RANGESSTANDARD DOSE: 2.0-3.0 Includes: PROPHYLAXIS for venous thrombosis, systemic embolization; TREATMENT for venous thrombosis and/or pulmonary embolus.HIGH RISK: Target INR is 2.5-3.5 for patients wiht mechanical heart valves.B-TYPE NATRIURETIC FACTOR (BNP) 2020-05-12 22:34:00 Test Item Value Reference Range Interpretation Comments B-TYPE NATRIURETIC PEPTIDE (BEAKER) 39 pg/mL 0-100 (test code = 700) Supervisor International Reservations ID - [id number] 22:30:00 Test Item Value Reference Range Interpretation Comments MAGNESIUM (BEAKER) 1.9 mg/dL 1.6-2.6 Specimen slightly (test code = 627) hemolyzed Supervisor International Reservations ID - [id number] 22:30:00 Test Item Value Reference Range Interpretation Comments PHOSPHORUS (BEAKER) 2.6 mg/dL 2.3-4.7 Specimen slightly (test code = 604) hemolyzed Supervisor International Reservations ID - DBCOMPREHENSIVE METABOLIC [id number] 22:30:00 Test Item Value Reference Range Interpretation [...] S NOT APPLICABLE FOR DIALYSIS PATIEN TS. Supervisor International Reservations ID - DBLIPID [id number] 22:30:00 Test Item Value Reference Range Interpretation Comments TRIGLYCERIDES (BEAKER) 74 mg/dL Speci men slightly (test code = 540) hemolyzed CHOLESTEROL (BEAKER) 187 mg/dL Specime n slightly (test code = 631) hemolyzed HDL CHOLESTEROL (BEAKER) 39 mg/dL (test code = 976) LDL CHOLESTEROL 133 mg/dL CALCULATED (BEAKER) (test code = 633) Triglyceride Reference Range: Low Risk <150 Borderline 150-199 High Risk 200- 499 Very High Risk >=500Cholesterol Reference Range: Low Risk <200 Borderline 200-239 High Risk >240HDL Cholesterol Reference Range: Low Risk >=60 High Risk <40LDL Cholesterol Reference Range: Optimal <100 Near Optimal 100-129 Borderline 130-159 High 160-189 Very High >=190 Supervisor International Reservations ID - DBCBC W/PLT COUNT & AUTO [id number] 22:26:00 Test Item Value Reference Range Interpretation [...] = 2801) RAD, CHEST, 1 VIEW, NON [id number] 22:08:00Reason for exam:- >dyspneaShould this be performed at the bedside?->YesFINAL REPORT Chest one view. Clinical history: dyspnea Comparison: None. Techniq ue: A single frontal view of the chest [...]
[2022-08-19] MEDS ORDERED: METHYLPREDNISOLONE 125 MG INJ ONE (10:20)
[2022-08-19] MEDS ORDERED: ALBUTEROL 2.5 MG/3 ML NEB SOL ONE (10:20)
[2022-08-19] MEDS ORDERED: NA CHLORIDE 0.9% 1,000 ML ONE (10:20)
[2022-08-19] MEDS ORDERED: FAMOTIDINE 20 MG/2 ML VIAL IV ONE (10:20)
[2022-08-19] MEDS ORDERED: DIPHENHYDRAMINE 50 MG/ML VIAL ONE (10:20)
[2022-08-19] MEDS ORDERED: IPRATROPIUM BROM 0.5MG/2.5ML ONE (10:20)
--- NOTE | 2022-08-19 11:48 | EDPHYS ---
Physician Documentation [facility] Name: Karthikeyan Mccormick Age: 57 yrs Sex: Male : 1965 Arrival Date: 08/19/2022 Time: 09:46 Bed 2 Private MD: ED Physician Tyrel Radford HPI: 08/19 14:46 This 57 yrs old Male presents to ER via Ambulatory with complaints of Allergic Reaction.kb 14:46 The patient presents with itching, rash, shortness of breath, swelling of the tongue. kb Onset: The symptoms/episode began/occurred yesterday. Associated signs and symptoms: Pertinent positives: hives, rash, shortness of breath. Possible causes: The patient has no known obvious cause for the symptoms. At home the patient or guardian has treated the symptoms with Benadryl. Severity of symptoms: At their worst the symptoms were moderate in the emergency department the symptoms have improved mildly. The patient has not experienced similar symptoms in the past. The patient has not recently seen a physician. Pt reports allergic reaction that started yesterday. Reports swelling to tongue last night that has resolved. Still experiencing shortness of breath and rash. Historical: - Allergies: 09:48 Aleve; iw - Home Meds: 09:48 candesartan Oral [Active]; Bystolic Oral [Active]; Aspirin Oral [Active]; Fluoxetine iw Oral [Active]; Lipitor Oral [Active]; Plavix Oral [Active]; Trileptal Oral [Active]; Zetia Oral [Active]; mounjaro [Active]; - PMHx: 09:48 alcoholisim; Asthma; CAD; depressive disorder; Hypertensive disorder; Myocardial iw infarction; Angina pectoris; - Immunization history:: Adult Immunizations unknown. - Social history:: Smoking status: Patient denies any tobacco usage or history of. ROS: 14:46 Constitutional: Negative for fever, chills, and weight loss. kb 14:46 ENT: Positive for swelling to tongue. 14:46 Respiratory: Positive for shortness of breath. 14:46 Skin: Positive for rash, diffusely. 14:46 All other systems are negative. Exam: 14:46 Constitutional: This is a well developed, well nourished patient who is awake, alert, kb and in no acute distress. Head/Face: Normocephalic, atraumatic. ENT: Moist Mucous membranes Cardiovascular: Regular rate and rhythm with a normal S1 and S2. No gallops, murmurs, or rubs. No pulse deficits. Respiratory: Respirations even and unlabored. No increased work of breathing. Talking in full sentences Abdomen/GI: Soft, non-tender. No distention MS/ Extremity: Pulses equal, no cyanosis. Neurovascular intact. Full, normal range of motion. Neuro: Awake and alert, GCS 15, oriented to person, place, time, and situation. Moves all extremities. Normal gait. Psych: Awake, alert, with orientation to person, place and time. Behavior, mood, and affect are within normal limits. 14:46 Skin: rash a moderate rash is noted, consistent with urticaria, and is diffusely located. Vital Signs: 09:50 BP 96 / 79; Pulse 100; Resp 16; Pulse Ox 97% on R/A; Weight 98.43 kg; Height 6 ft. 2 iw in. (187.96 cm); 10:27 Temp 97.9(TE); ll1 10:59 BP 92 / 55; Pulse 97; Resp 18; Pulse Ox 99% on R/A; ph 11:59 BP 102 / 71; Pulse 89; Resp 18; Temp 97.8; Pulse Ox 99% on R/A; ph 09:50 Body Mass Index 27.86 (98.43 kg, 187.96 cm) iw MDM: 09:55 Patient medically screened. kb 14:46 Data reviewed: vital signs, nurses notes. kb 14:49 Differential diagnosis: angioedema, urticaria. Counseling: I had a detailed discussion kb with the patient and/or guardian regarding: the historical points, exam findings, and any diagnostic results supporting the discharge/admit diagnosis, the need for outpatient follow up, a family practitioner, to return to the emergency department if symptoms worsen or persist or if there are any questions or concerns that arise at home. 14:49 Response to treatment: the patient's symptoms have markedly improved after treatment. jairo 08/19 10:01 Order name: IV Start; Complete Time: 10:27 kb Administered Medications: 10:30 Drug: NS 0.9% 1000 ml Route: IV; Rate: 1000 ml; Site: right forearm; ph 11:59 Follow up: Response: No adverse reaction; IV Status: Completed infusion; IV Intake: ph 1000ml 10:30 Drug: SOLU-Medrol (methylPrednisoLONE) 125 mg Route: IVP; Site: right forearm; ph 11:58 Follow up: Response: No adverse reaction ph 10:31 Drug: Pepcid (famotidine) 20 mg Route: IVP; Site: right forearm; ph 11:58 Follow up: Response: No adverse reaction ph 10:33 Drug: Benadryl (diphenhydrAMINE) 25 mg Route: IVP; Site: right forearm; ph 11:58 Follow up: Response: No adverse reaction ph 10:35 Drug: Albuterol 2.5 mg Route: Inhalation; ph 11:58 Follow up: Response: No adverse reaction ph 10:35 Drug: AtroVENT (ipratropium) Aerosol 0.5 mg Route: Inhalation; ph 11:58 Follow up: Response: No adverse reaction ph Disposition: 16:34 Co-signature as Attending Physician, Tyrel Radford MD I agree with the assessment and kdr plan of care. Disposition Summary: 08/19/22 11:47 Discharge Ordered Location: Home kb Condition: Stable kb Diagnosis - Urticaria, unspecified kb Followup: kb - With: Emergency Department - When: As needed - Reason: Worsening of condition Followup: kb - With: Private Physician - When: 2 - 3 days - Reason: Recheck today's complaints, Continuance of care, Re-evaluation by your physician Discharge Instructions: - Discharge Summary Sheet kb - Hives, [id number] kb Forms: - Medication Reconciliation Form kb - Thank You Letter kb - Antibiotic Education kb - Prescription Opioid Use kb Prescriptions: - Pepcid 20 mg Oral Tablet - take 1 tablet by ORAL route every 12 hours for 5 days; 10 tablet; Refills: 0, kb Product Selection Permitted - Prednisone 20 mg Oral Tablet - take 2 tablets by ORAL route once daily for 5 days; 10 tablet; Refills: 0, kb Product Selection Permitted Signatures: Sluy Epstein FNP-C FNP-Ckb Rittger, Kevin, MD MD kdr Tatiana Villalta RN RN iw Carla Aguilar RN RN ph Corrections: (The following items were deleted from the chart) 09:50 09:48 Allergies: aleeve; iw iw 09:50 09:48 Home Meds: mounjarou; iw iw
--- NOTE | 2022-08-19 11:48 | ER ---
[facility] Name: Karthikeyan Mccormick Age: 57 yrs Sex: Male : 1965 Arrival Date: 08/19/2022 Time: 09:46 Bed 2 Private MD: Diagnosis: Urticaria, unspecified Presentation: 08/19 09:46 Chief complaint: Patient states: hives on legs back, arms, all over body since iw yesterday , now he feels like he's having difficulty breathing , tongue was swollen yesterday. 09:53 Coronavirus screen: At this time, the client does not indicate any symptoms associated iw with coronavirus-19. Ebola Screen: Patient negative for fever greater than or equal to 101.5 degrees Fahrenheit, and additional compatible Ebola Virus Disease symptoms Patient denies exposure to infectious person. Patient denies travel to an Ebola-affected area in the 21 days before illness onset. No symptoms or risks identified at this time. Initial Sepsis Screen: Does the patient meet any 2 criteria? No. Patient's initial sepsis screen is negative. Does the patient have a suspected source of infection? No. Patient's initial sepsis screen is negative. Risk Assessment: Do you want to hurt yourself or someone else? Patient reports no desire to harm self or others. Onset of symptoms was August 18, 2022. 09:53 Method Of Arrival: Ambulatory iw 09:53 Acuity: MELQUIADES 3 iw Historical: - Allergies: 09:48 Aleve; iw - Home Meds: 09:48 candesartan Oral [Active]; Bystolic Oral [Active]; Aspirin Oral [Active]; Fluoxetine iw Oral [Active]; Lipitor Oral [Active]; Plavix Oral [Active]; Trileptal Oral [Active]; Zetia Oral [Active]; mounjaro [Active]; - PMHx: 09:48 alcoholisim; Asthma; CAD; depressive disorder; Hypertensive disorder; Myocardial iw infarction; Angina pectoris; - Immunization history:: Adult Immunizations unknown. - Social history:: Smoking status: Patient denies any tobacco usage or history of. Screenin:55 [facility] ED Fall Risk Assessment (Adult) History of falling in the last 3 months, ph including since admission No falls in past 3 months (0 pts) Confusion or Disorientation No (0 pts) Intoxicated or Sedated No (0 pts) Impaired Gait No (0 pts) Mobility Assist Device Used No (0 pt) Altered Elimination No (0 pt) Score/Fall Risk Level 0 - 2 = Low Risk Oriented to surroundings, Maintained a safe environment, Hourly rounding (assess needs \T\ fall precautionary measures) done. Abuse screen: Denies threats or abuse. Denies injuries from another. Nutritional screening: No deficits noted. Tuberculosis screening: No symptoms or risk factors identified. Assessment: 10:20 General: Appears in no apparent distress. well groomed, Behavior is calm, cooperative, ph appropriate for age. Pain: Denies pain. Neuro: Level of Consciousness is awake, alert, obeys commands, Oriented to person, place, time, situation. Cardiovascular: Denies chest pain, Capillary refill < 3 seconds in bilateral fingers Patient's skin is warm and dry. Respiratory: Reports labored breathing Airway is patent Respiratory effort is even, unlabored, Respiratory pattern is regular, symmetrical, Denies shortness of breath. GI: No signs and/or symptoms were reported involving the gastrointestinal system. Derm: Skin is healthy with good turgor, Skin is pink, warm \T\ dry. Rash noted that is itchy, red, raised, urticaria, on back, chest, abdomen, right hand, left hand, right arm, left arm, right leg and left leg. Vital Signs: 09:50 BP 96 / 79; Pulse 100; Resp 16; Pulse Ox 97% on R/A; Weight 98.43 kg; Height 6 ft. 2 iw in. (187.96 cm); 10:27 Temp 97.9(TE); ll1 10:59 BP 92 / 55; Pulse 97; Resp 18; Pulse Ox 99% on R/A; ph 11:59 BP 102 / 71; Pulse 89; Resp 18; Temp 97.8; Pulse Ox 99% on R/A; ph 09:50 Body Mass Index 27.86 (98.43 kg, 187.96 cm) iw ED Course: 09:46 Patient arrived in ED. iw 09:50 Arm band placed on. iw 09:54 Triage completed. iw 09:55 Carla Aguilar RN is Primary Nurse. ph 09:55 [facility] Epstein [facility]C [facility]. kb 09:55 Tyrel Radford MD is Attending Physician. kb 10:25 Inserted saline lock: 20 gauge in right forearm, using aseptic technique. ph 10:56 Patient has correct armband on for positive identification. Placed in gown. Bed in low ph position. Call light in reach. Side rails up X 1. Pulse ox on. NIBP on. Door closed. Noise minimized. Warm blanket given. 11:59 No provider procedures requiring assistance completed. IV discontinued, intact, ph bleeding controlled, No redness/swelling at site. Pressure dressing applied. Administered Medications: 10:30 Drug: NS 0.9% 1000 ml Route: IV; Rate: 1000 ml; Site: right forearm; ph 11:59 Follow up: Response: No adverse reaction; IV Status: Completed infusion; IV Intake: ph 1000ml 10:30 Drug: SOLU-Medrol (methylPrednisoLONE) 125 mg Route: IVP; Site: right forearm; ph 11:58 Follow up: Response: No adverse reaction ph 10:31 Drug: Pepcid (famotidine) 20 mg Route: IVP; Site: right forearm; ph 11:58 Follow up: Response: No adverse reaction ph 10:33 Drug: Benadryl (diphenhydrAMINE) 25 mg Route: IVP; Site: right forearm; ph 11:58 Follow up: Response: No adverse reaction ph 10:35 Drug: Albuterol 2.5 mg Route: Inhalation; ph 11:58 Follow up: Response: No adverse reaction ph 10:35 Drug: AtroVENT (ipratropium) Aerosol 0.5 mg Route: Inhalation; ph 11:58 Follow up: Response: No adverse reaction ph Medication: 10:56 VIS not applicable for this client. ph Intake: 11:59 IV: 1000ml; Total: 1000ml. ph Outcome: 11:47 Discharge ordered by . kb 11:59 Discharged to home ambulatory, with significant other. ph 11:59 Condition: good 11:59 Discharge instructions given to patient, significant other, Instructed on discharge instructions, follow up and referral plans. medication usage, Demonstrated understanding of instructions, follow-up care, medications, Prescriptions given X 2. 11:59 Patient left the ED. ph Signatures: Suly Epstein, HANNA ESCAMILLA-Tatiana Robles RN RN Carla Aguilar RN RN ph Augusto, Lynsay, RN RN ll1 Corrections: (The following items were deleted from the chart) 09: 09:48 Allergies: aleeve; iw 09:50 09:48 Home Meds: mounjarou; iw 09:51 09:50 BP 69 / 79; Pulse 100bpm; Resp 16bpm; Pulse Ox 97% RA; 98.43 kg; Height 6 ft. 2 iw in.; BMI: 27.8; iw 10:57 10:33 Benadryl (diphenhydrAMINE) 25 mg IVP in right antecubital ph ph 10:58 10:30 NS 0.9% 1000 ml IV at 1000 ml in right antecubital ph ph 10:58 10:30 SOLU-Medrol (methylPrednisoLONE) 125 mg IVP in right antecubital ph ph 10:58 10:31 Pepcid (famotidine) 20 mg IVP in right antecubital ph ph
[2022-08-19 12:27] VITALS: BP 102/71; TEMP 97.8; O2SAT 99
== END 2022-08-19 11:59 | disposition home or self-care (01) ==
LOC: ER 09:45
DX: L50.9 Urticaria, unspecified (principal); I10 Essential (primary) hypertension; J45.909 Unspecified asthma, uncomplicated; F32.A Depression, unspecified; I25.2 Old myocardial infarction; F10.20 Alcohol dependence, uncomplicated
CPT/HCPCS: 96361; 96375; 96374; 99284; J1200; J7613; J7644; J7030; J2930